=== PATIENT | male | born 1945 | race Caucasian/White ===

== ENCOUNTER 2018-06-09 19:39 | Inpatient (IN) | payer OTHER, MEDICARE ==
[~2018-06-09] VITALS: Ht 172.7 cm; Wt 99.4 kg
[~2018-06-09 19:39] MED LIST: AMLO10TA2 PO; CIPR-262 PO; CLOP75TA15 PO; LOSA100T15 PO; METO50TA16 PO; POTA20TA74 PO; SIMV20TA6 PO; TAMS0.4C34 PO
--- NOTE | 2018-06-09 19:40 | NUR ---
PT CAME IN BY SELF, C/C CP 06/29 STARTED AT 1800 SHARP NON RADIATING, TOOK ASA 81MG AND NITRO X2 PRIOR TO INTENSIFYING. SEEN BY DR DUMONT, EVAL DONE, EKG OBTAINED, NSR 87. AWAITING FOR NEW ORDERS.
[2018-06-09] MEDS ORDERED: NITROGLYCERIN 0.4 MG/TAB BOTTLE SL ONE (20:00)
[2018-06-09] MEDS ORDERED: ASPIRIN 81 MG TAB.CHEW PO ONE (20:00)
[2018-06-09 20:08] LABS: BASOPHILS # (AUTO) 0.2 /CMM (0.0-0.2); BASOPHILS % (AUTO) 1.9 % (0.0-2.0); EOSINOPHILS % (AUTO) 4.7 % (0.0-6.0); HEMATOCRIT 45 % (39-51); HEMOGLOBIN 15.4 g/dL (13.5-17.5); MEAN CORPUSCULAR HEMOGLOBIN 29 PG (26.0-33.0); MEAN CORPUSCULAR HGB CONC 34 g/dl (31.0-36.0); MEAN CORPUSCULAR VOLUME 86 fL (80-96); MONOCYTES # (AUTO) 0.7 /CMM (0.1-1.30); MONOCYTES % (AUTO) 8.8 % (2.0-12.0); NEUTROPHILS % (AUTO) 60.6 % (43.0-81.0); PLATELET COUNT (AUTO) 234 /CMM (150-450); RDW COEFFICIENT OF VARIATION 12.7 (11.5-15.0); RED BLOOD CELL COUNT(AUTO) 5.26 MIL/uL (4.5-6.0); WHITE BLOOD COUNT (AUTO) 8.3 K/uL (4.3-11.0)
[2018-06-09] MEDS ORDERED: NITROGLYCERIN 0.4 MG/TAB BOTTLE ONE (20:15)
[2018-06-09] MEDS ORDERED: ASPIRIN 325 MG TABLET ONE (20:15)
[2018-06-09 20:33] LABS: INR 1.06 (0.85-1.15)
[2018-06-09 20:38] LABS: ALANINE AMINOTRANSFERASE 25 U/L (12-78); ALBUMIN 3.6 g/dL (3.4-5.0); ALKALINE PHOSPHATASE 76 U/L (46-116); ASPARTATE AMINOTRANSFERASE 12 U/L (15-37); BILIRUBIN,DIRECT 0.1 mg/dL (0.0-0.2); BILIRUBIN,TOTAL 0.5 mg/dL (0.2-1.0); CALCIUM, SERUM 8.8 mg/dL (8.5-10.1); CARBON DIOXIDE 35 mmol/L (21-32); CHLORIDE 103 mmol/L (98-107); CREATININE 1.5 mg/dL (0.6-1.3); GLUCOSE 107 mg/dL (74-106); POTASSIUM 3.5 mmol/L (3.5-5.1); SODIUM SERUM 139 mmol/L (136-145); TOTAL PROTEIN, SERUM 7.4 g/dL (6.4-8.2); UREA NITROGEN, BLOOD 18 mg/dL (7-18)
[2018-06-09 20:39] LABS: TROPONIN I < 0.017 ng/mL (0.00-0.056)
[2018-06-09] MEDS ORDERED: ONDANSETRON HCL/PF 4 MG/2 ML VIAL IVP PRN (21:30)
[2018-06-09] MEDS ORDERED: ENOXAPARIN SODIUM 40 MG/0.4 ML DISP.SYRIN SQ SCH (21:30)
[2018-06-09] MEDS ORDERED: ACETAMINOPHEN 325 MG TABLET PO PRN ×2 (21:30→22:15)
[2018-06-09] MEDS ORDERED: MAG HYDROX/AL HYDROX/SIMETH 30 ML UDC PO PRN ×2 (21:30→22:15)
[2018-06-09] MEDS ORDERED: MAGNESIUM HYDROXIDE 30 ML UDC PO PRN ×2 (21:30→22:15)
[2018-06-09] MEDS ORDERED: NITROGLYCERIN 0.4 MG/TAB BOTTLE SL PRN ×2 (21:30→22:15)
--- NOTE | 2018-06-09 22:15 | NUR ---
MATERIALS ENGINEER NOTES: Patient came to the unit via gurney. Alert, oriented x 4. Breathing even and unlabored. Denies any chest pain or any discomfort as of this time. Denies any weakness. IV on RFA g#20 intact and patent. Tele monitor in place; sinus rhythm 74. Medications to be kept by pharmacy. Oriented to call light. Bed in lowest, locked position, siderailsx2 up. Will monitor accordingly.
[2018-06-09 22:25] VITALS: BP 170/79
[2018-06-09 23:39] VITALS: BP 151/70
[2018-06-10] VITALS: BP 153/63
[2018-06-10] MEDS ORDERED: ENOXAPARIN SODIUM 100 MG/ML DISP.SYRIN SQ SCH
[2018-06-10] MEDS ORDERED: METOPROLOL TARTRATE 50 MG TABLET PO ONE
--- NOTE | 2018-06-10 00:18 | NUR ---
RN NOTES: Patient refused Lopressor. Stated that usually his blood pressure drops. HR on BP monitor is 43, but on tele monitor, 79
[2018-06-10] MEDS: ZOLPIDEM TARTRATE 5 MG TABLET PO PRN ×2 (01:44→22:15)
--- NOTE | 2018-06-10 01:45 | NUR ---
BUZZSAW OPERATOR NOTE - Ayan Currently covering for JUNI Smith while she is on her meal break. Patient requested sleeping medication. Spoke with Sarah, and patient is okay to receive Ambien. I administered 5mg PO Ambien for prn use as ordered.
[2018-06-10 04:00] VITALS: BP 161/74
--- NOTE | 2018-06-10 07:03 | NUR ---
YOUTUBER CLOSING NOTES: Patient currently sleeping but easily arousable. Alert, oriented x 4. Breathing even and unlabored. Denies any chest pain or any discomfort as of this time. IV on RFA g#20 intact and patent. Tele monitor in place; sinus rhythm 63. All needs attended to. All due medications given as ordered. Call baker within reach. Bed in lowest, locked position, siderailsx2 up. Will endorse RAIZA to AM shift RN
--- NOTE | 2018-06-10 07:43 | NUR ---
RESEARCH SPEC OPENING NOTES RECEIVED PT FROM NIGHTSHIFT NURSE IN STABLE CONDITION. PT IS A/O X4. NO SOB OR SIGNS OF DISTRESS NOTED. BREATHING IS EVEN AND UNLABORED. PT ON RA AND SATING WELL. HE DENIES ANY CHEST PAIN, WEAKNESS, OR NUMBNESS AT THIS TIME. PT SINUS HIMANSHU ON THE TELE MONITOR WITH A HR OF 58. IV TO RIGHT RA NOTED TO BE PATENT AND INTACT. NO REDNESS OR SIGNS OF INFILTRATION NOTED. BED IN LOW LOCKED POSITION, SIDE RAILS UP X2, CALL LIGHT WITHIN REACH. WILL CONTINUE TO MONITOR
[2018-06-10 07:58] LABS: BASOPHILS # (AUTO) 0.1 /CMM (0.0-0.2); EOSINOPHILS % (AUTO) 6.3 % (0.0-6.0); HEMATOCRIT 45 % (39-51); HEMOGLOBIN 14.9 g/dL (13.5-17.5); LYMPHOCYTES # (AUTO) 1.5 /CMM (0.8-4.8); LYMPHOCYTES % (AUTO) 24.5 % (20.0-44.0); MEAN CORPUSCULAR HEMOGLOBIN 29 PG (26.0-33.0); MEAN CORPUSCULAR HGB CONC 33 g/dl (31.0-36.0); MEAN CORPUSCULAR VOLUME 88 fL (80-96); MONOCYTES # (AUTO) 0.5 /CMM (0.1-1.30); MONOCYTES % (AUTO) 7.7 % (2.0-12.0); NEUTROPHILS # (AUTO) 3.6 /CMM (1.8-8.9); NEUTROPHILS % (AUTO) 60.5 % (43.0-81.0); PLATELET COUNT (AUTO) 220 /CMM (150-450); RDW COEFFICIENT OF VARIATION 13.3 (11.5-15.0); RED BLOOD CELL COUNT(AUTO) 5.13 MIL/uL (4.5-6.0)
[2018-06-10 08:00] VITALS: BP 161/72
[2018-06-10 08:21] LABS: TROPONIN I < 0.017 ng/mL (0.00-0.056)
--- NOTE | 2018-06-10 08:33 | NUR ---
PARTY PLAN SALES AGENT NOTES: CTA CTA PROCEDURE ORDERED BY DR. SMITH. CONSENT FOR PROCEDURE AND CONTRAST MEDIUM OBTAINED FROM PT. PER MD, "PT MAY HAVE ALL HIS AM MEDICATIONS". PT EDUCATED THAT HE WILL REMAIN NPO UNTIL PROCEDURE IS COMPLETE. PT VERBALIZED FULL UNDERSTANDING
[2018-06-10 08:52] LABS: CHOLESTEROL 133 mg/dL (<200); HDL CHOLESTEROL 35 mg/dL (40-60); LDL 79 mg/dL (0-99); TRIGLYCERIDES 152 mg/dL (30-150)
[2018-06-10] MEDS ORDERED: TAMSULOSIN 0.4 MG CAP.SR.24H PO SCH (09:00)
[2018-06-10] MEDS ORDERED: CLOPIDOGREL BISULFATE 75 MG TABLET PO SCH (09:00)
[2018-06-10] MEDS ORDERED: AMLODIPINE BESYLATE 10 MG TABLET PO SCH (09:00)
[2018-06-10] MEDS ORDERED: SIMVASTATIN 20 MG TABLET PO SCH (09:00)
[2018-06-10] MEDS ORDERED: METOPROLOL TARTRATE 50 MG TABLET PO SCH ×2 (09:00)
[2018-06-10] MEDS ORDERED: ASPIRIN EC 81 MG TABLET.DR PO SCH (09:00)
[2018-06-10] MEDS: CLOPIDOGREL BISULFATE 75 MG TABLET PO SCH (09:07)
[2018-06-10] MEDS: AMLODIPINE BESYLATE 10 MG TABLET PO SCH (09:07)
[2018-06-10] MEDS: ASPIRIN EC 81 MG TABLET.DR PO SCH (09:08)
[2018-06-10] MEDS: TAMSULOSIN 0.4 MG CAP.SR.24H PO SCH ×2 (09:08→16:14)
[2018-06-10] MEDS: SIMVASTATIN 20 MG TABLET PO SCH (09:08)
[2018-06-10 10:05] LABS: ALANINE AMINOTRANSFERASE 25 U/L (12-78); ALBUMIN 3.3 g/dL (3.4-5.0); ALKALINE PHOSPHATASE 66 U/L (46-116); ASPARTATE AMINOTRANSFERASE 14 U/L (15-37); BILIRUBIN,TOTAL 0.5 mg/dL (0.2-1.0); CALCIUM, SERUM 8.2 mg/dL (8.5-10.1); CARBON DIOXIDE 28 mmol/L (21-32); CHLORIDE 101 mmol/L (98-107); CREATININE 1.2 mg/dL (0.6-1.3); GLUCOSE 103 mg/dL (74-106); PHOSPHORUS 3.8 mg/dL (2.5-4.9); POTASSIUM 3.5 mmol/L (3.5-5.1); SODIUM SERUM 141 mmol/L (136-145); TOTAL PROTEIN, SERUM 6.8 g/dL (6.4-8.2); UREA NITROGEN, BLOOD 13 mg/dL (7-18)
[2018-06-10] MEDS ORDERED: CT SWABBABLE VALVE TRANS SET 1 EA INFUS.SET MC ONE (10:52)
[2018-06-10] MEDS ORDERED: IOHEXOL-350 100 ML VIAL IV ONE (10:52)
[2018-06-10] MEDS ORDERED: IV NS 0.9% 250 ML IV ONE (10:53)
[2018-06-10] MEDS ORDERED: LORAZEPAM 0.5 MG TABLET PO ONE (11:30)
[2018-06-10] MEDS: ENOXAPARIN SODIUM 40 MG/0.4 ML DISP.SYRIN SQ SCH (11:31)
[2018-06-10] MEDS: ONDANSETRON HCL/PF 4 MG/2 ML VIAL IVP PRN ×2 (11:33→22:11)
[2018-06-10] MEDS: METOPROLOL TARTRATE 50 MG TABLET PO SCH ×2 (12:10→16:05)
--- NOTE | 2018-06-10 12:13 | NUR ---
MOLDER FEEDER NOTES: METOPROL ADMINISTRATION PT'S 0900 METOPROLOL WAS ADMINISTERED LATYE PT IS SCHEDULED FOR CTA IN ABOUT 30MIN AND HIS HR AROUND 0830 WAS IN THE LOWER 50S/ IT IS NOT STABLE IN THE 70S HENCE WHY THE MEDICATION WAS ADMINISTERED AT THIS TIME TO MAINTAIN HIS HR IN THE 50S-60S FOR PROCEDURE
[2018-06-10] MEDS ORDERED: METOPROLOL TARTRATE INJ 5 MG/5 ML AMPUL ONE (13:41)
--- NOTE | 2018-06-10 14:17 | NUR ---
PT BACK FROM CTA IN STABLE CONDITION. WILL AWAIT RESULTS
[2018-06-10 15:33] VITALS: BP 115/62
[2018-06-10] MEDS ORDERED: IV NS 0.9% 500 ML IV ONE (16:30)
--- NOTE | 2018-06-10 18:32 | NUR ---
ADMISSION SPECIALIST CLOSING NOTES PT REMAINS STABLE. ALL NEEDS ANTICIPATED FOR AND MET. ALL DUE MEDS GIVEN. HE CONTINUES TO DENY CHEST PAIN AT THIS TIME. VSS. IV REMAINS PATENT AND INTACT. TELEPHONE ORDER GIVEN BY TO HYDRATE THE PT WITH 500CC NS @ 75ML/HR. PT TOLERATING INFUSION WELL. HE REMAINS SR ON THE TELE MONITOR WITH A HR OF 62. SAFETY MEASURES REMAIN IN PLACE. WILL ENDORSE TO NIGHTSHIFT NURSE FOR RAIZA
--- NOTE | 2018-06-10 19:30 | NUR ---
LAND MEASURER OPENING NOTES RECEIVED PT FROM AM SHIFT IN STABLE CONDITION. PT IS A/O X 4. NO SOB OR SIGNS OF DISTRESS NOTED. BREATHING IS EVEN AND UNLABORED. PT ON RA AND SATING WELL. HE DENIES ANY CHEST PAIN, WEAKNESS, OR NUMBNESS AT THIS TIME. PT SINUS HIMANSHU ON THE TELE MONITOR WITH A HR OF 56. IV TO RIGHT FA NOTED TO BE PATENT AND INTACT RUNNING WITH IVF ORDERED. . NO REDNESS OR SIGNS OF INFILTRATION NOTED. BED IN LOW LOCKED POSITION, SIDE RAILS UP X 2, CALL LIGHT WITHIN REACH. WILL CONTINUE TO MONITOR FOR ANY RAIZA.
[2018-06-10 20:00] VITALS: BP 137/70
--- NOTE | 2018-06-10 22:11 | NUR ---
PRN TYLENOL & ZOFRAN GIVEN PT REQUESTED TO GET TYLENOL FOR HEADACHE & NAUSEA MEDICINE. PRN TYLENOL & ZOFRAN GIVEN ORDERED. WILL REASSESS ACCORDINGLY.
--- NOTE | 2018-06-10 22:15 | NUR ---
PRN ZENAIEN GIVEN PT ASKED TO GET AMBIEN FOR SLEEPLESSNESS, WILL REASSESS FOR EFFECTIVENESS.
[2018-06-11] VITALS (7 sets, daily range): BP systolic 138–153; BP diastolic 61–75
--- NOTE | 2018-06-11 06:59 | NUR ---
SEO CONSULTANT CLOSING NOTES PT SLEPT INTERMITTENTLY @ NIGHT. PT IS A/O X 4. NO SOB OR SIGNS OF DISTRESS NOTED. BREATHING IS EVEN AND UNLABORED. PT ON O2 2LPM & SATING WELL. HE DENIES ANY CHEST PAIN, WEAKNESS, OR NUMBNESS AT THIS TIME. PT SINUS HIMANSHU ON THE TELE MONITOR WITH A HR OF 54. HAD BM X 1 @ NIGHT. IV TO RIGHT FA NOTED TO BE PATENT AND PATENT. NO REDNESS OR SIGNS OF INFILTRATION NOTED. BED IN LOW LOCKED POSITION, SIDE RAILS UP X 2, CALL LIGHT WITHIN REACH. ENDORSED TO AM RN FOR CLOSE MONITORING.
[2018-06-11] MEDS: AMLODIPINE BESYLATE 10 MG TABLET PO SCH (09:00)
[2018-06-11] MEDS: METOPROLOL TARTRATE 50 MG TABLET PO SCH ×4 (09:00→23:38)
[2018-06-11] MEDS: ASPIRIN EC 81 MG TABLET.DR PO SCH (09:00)
[2018-06-11] MEDS: ENOXAPARIN SODIUM 40 MG/0.4 ML DISP.SYRIN SQ SCH (09:10)
[2018-06-11] MEDS: CLOPIDOGREL BISULFATE 75 MG TABLET PO SCH (09:11)
[2018-06-11] MEDS: TAMSULOSIN 0.4 MG CAP.SR.24H PO SCH ×2 (09:12→17:02)
[2018-06-11] MEDS: SIMVASTATIN 20 MG TABLET PO SCH (09:12)
--- NOTE | 2018-06-11 09:54 | NUR ---
PATIENT REFUSING ASPIRIN, STATING " I ONLY WANT PLAVIX!" NO SIGNS OF BLEEDING NOTED. PATIENT EDUCATED ON LENGTH ON THE PURPOSE OF EACH MEDICATIONS. BENEFITS AND RISK EXPLAINED AT LENGTH. PATIENT STILL REFUSING
[2018-06-11] MEDS: ONDANSETRON HCL/PF 4 MG/2 ML VIAL IVP PRN (19:08)
--- NOTE | 2018-06-11 19:20 | NUR ---
RN CLOSING NOTES: PATIENT RESTING IN BED. NONLABORED BREATHING NOTED ON ROOM AIR. DENYING CHEST PAIN THROUGHOUT SHIFT. STATES NOW THAT HE FEELS " A LITTLE NAUSEOUS" AFTER DINNER CONSUMPTION. NO VOMITING NOTED. ZOFRAN ADMINISTERED PER ORDERS. DR TEJADA NOTIFIED THAT PATIENT REFUSING ASPIRIN PATIENT STILL REFUSING LEXISCAN. PATIENT AMBULATED AROUND THE UNIT IN A STEADY MANNER WITH NO ADVERSE EFFECTS NOW CALL LIGHT WITHIN REACH. BED IN LOWEST LOCKED POSITION. TELE SR 90 ENDORSED TO NEXT RN
--- NOTE | 2018-06-11 19:37 | NUR ---
TELERN FULLY AWAKE, RESTING QUIETLY. NO SOB, PAINFREE FOR NOW. SB TO SR ON THE MONITOR, CONTINUED MONITORING.
[2018-06-11] MEDS: LORAZEPAM 0.5 MG TABLET PO PRN (23:32)
--- NOTE | 2018-06-11 23:39 | NUR ---
TELERN ANXIOUS, ATIVAN 0.5MG ADMINISTERED. BEDREST EMPHASIZED. SAFETY PRECAUTIONS OBSERVED. BP ELEVATED LOPRESSOR 50 MG PO GIVEN. UNABLE TO BARCODE .
[2018-06-12] VITALS (7 sets, daily range): BP systolic 110–178; BP diastolic 57–87
[2018-06-12] MEDS: ZOLPIDEM TARTRATE 5 MG TABLET PO PRN (00:49)
[2018-06-12] MEDS: METOPROLOL TARTRATE 50 MG TABLET PO SCH ×3 (06:00→18:00)
--- NOTE | 2018-06-12 06:00 | NUR ---
TELERShana SLEPT THROUGHOUT THE NIGHT AFTER TAKING AMBIEN. CLOSELY WATCHED.
[2018-06-12 06:32] LABS: BASOPHILS % (AUTO) 0.6 % (0.0-2.0); HEMATOCRIT 46 % (39-51); HEMOGLOBIN 14.9 g/dL (13.5-17.5); LYMPHOCYTES # (AUTO) 1.7 /CMM (0.8-4.8); LYMPHOCYTES % (AUTO) 22.6 % (20.0-44.0); MEAN CORPUSCULAR HEMOGLOBIN 29 PG (26.0-33.0); MEAN CORPUSCULAR HGB CONC 32 g/dl (31.0-36.0); MEAN CORPUSCULAR VOLUME 90 fL (80-96); MONOCYTES # (AUTO) 0.7 /CMM (0.1-1.30); MONOCYTES % (AUTO) 8.7 % (2.0-12.0); NEUTROPHILS # (AUTO) 4.8 /CMM (1.8-8.9); NEUTROPHILS % (AUTO) 63.1 % (43.0-81.0); PLATELET COUNT (AUTO) 236 /CMM (150-450); RED BLOOD CELL COUNT(AUTO) 5.14 MIL/uL (4.5-6.0); WHITE BLOOD COUNT (AUTO) 7.6 K/uL (4.3-11.0)
[2018-06-12 06:40] LABS: ALANINE AMINOTRANSFERASE 25 U/L (12-78); ALBUMIN 3.1 g/dL (3.4-5.0); ALKALINE PHOSPHATASE 62 U/L (46-116); ASPARTATE AMINOTRANSFERASE 24 U/L (15-37); BILIRUBIN,TOTAL 0.4 mg/dL (0.2-1.0); CALCIUM, SERUM 8.4 mg/dL (8.5-10.1); CARBON DIOXIDE 33 mmol/L (21-32); CHLORIDE 102 mmol/L (98-107); CREATININE 1.1 mg/dL (0.6-1.3); GLUCOSE 94 mg/dL (74-106); PHOSPHORUS 4.4 mg/dL (2.5-4.9); POTASSIUM 3.6 mmol/L (3.5-5.1); SODIUM SERUM 141 mmol/L (136-145); TOTAL PROTEIN, SERUM 6.5 g/dL (6.4-8.2); UREA NITROGEN, BLOOD 11 mg/dL (7-18)
--- NOTE | 2018-06-12 07:10 | NUR ---
RN INITIAL NOTES: PATIENT RESTING IN BED. NONLABORED BREATHING NOTED ON ROOM AIR. DENYING CHEST PAIN AT THE MOMENT. DENYING HEADACHES AT THE MOMENT. TELE MONITORING WITH SINUS BRADYCARDIA NOTED WITH 59 HR. BED IN LOWEST LOCKED POSITION.CALL LIGHT WITHIN REACH. WILL CONTINUE TO MONITOR
[2018-06-12] MEDS: AMLODIPINE BESYLATE 10 MG TABLET PO SCH (08:03)
[2018-06-12] MEDS: hydrALAZINE HCL 50 MG TABLET PO SCH ×3 (08:27→17:28)
[2018-06-12] MEDS: TAMSULOSIN 0.4 MG CAP.SR.24H PO SCH ×2 (08:27→17:28)
[2018-06-12] MEDS: ASPIRIN EC 81 MG TABLET.DR PO SCH (09:00)
[2018-06-12] MEDS: ISOSORBIDE DINITRATE (20MG) 20 MG TABLET PO SCH ×2 (09:00→18:50)
[2018-06-12] MEDS: CLOPIDOGREL BISULFATE 75 MG TABLET PO SCH (09:45)
[2018-06-12] MEDS: SIMVASTATIN 20 MG TABLET PO SCH (09:45)
[2018-06-12] MEDS: ENOXAPARIN SODIUM 40 MG/0.4 ML DISP.SYRIN SQ SCH (09:45)
--- NOTE | 2018-06-12 15:34 | NUR ---
PATIENT ASSESSED FOR SIGNS OF URINARY RETENTION. BLADDER SCANNER UTILIZED: RESULT NOTING 0 ML OF RETENTION
[2018-06-12] MEDS: LORAZEPAM 0.5 MG TABLET PO PRN (17:29)
--- NOTE | 2018-06-12 18:56 | NUR ---
PATIENT STATES THAT ANXIETY HAS SUBSIDED AFTER ATIVAN INTAKE. PATIENT ENCOURAGED TO EXPRESS FEELINGS AND EMOTIONS
--- NOTE | 2018-06-12 19:30 | NUR ---
RN MS OPENING NOTES RECEIVED PATIENT IN BED AWAKE, ALERT AND ORIENTED X3, VERBALLY RESPONSIVE. IN STABLE CONDITION. BREATHING EVEN AND UNLABORED. NO SOB NOTED. IV RIGHT FA #20 INTACT AND PATENT. DENIES ANY PAIN OR DISCOMFORT AT THE MOMENT. SKIN DRY AND WARM TO TOUCH. ALL OTHER NEEDS ATTENDED TO. ANTICIPATING DISCHARGE TONIGHT. CALL LIGHT WITHIN REACH. BED ON LOWEST LOCKED POSITION. WILL CONTINUE TO MONITOR
--- NOTE | 2018-06-12 19:30 | NUR ---
RN CLOSING NOTES: PATIENT RESTING IN BED. NONLABORED BREATHING NOTED ON ROOM AIR. NO CHANGES DURING SHIFT. PATIENT DENIED CHEST PAIN THROUGHOUT SHIFT. IV SITE GAGUE 22 ON RIGHT FA PATENT AND INTACT. PER MARY MARTÍNEZ DNP- PATIENT TO BE DISCHARGED TODAY. NO DISCHARGE ORDER YET. SPOKE WITH PATIENT REGRADING ARRANGING TRANSPORTATION.PATIENT STATED THAT FAMILY WILL BE ABLE TO PICK HIM UP MEDICATIONS RETURNED TO PATIENT. ALL VALUABLES WITH PATIENT EXISTCARE INSTRUCTIONS DISCUSSED WITH PATIENT NO SIGNS OF ANXIETY NOTED AT THE MOMENT PATIENT REFUSING SKIN PICTURE , EDUCATED ON BENEFIT AND RISKS PATIENT REFUSING A WALKER,STATING HE HAS ONE AT HOME
--- NOTE | 2018-06-12 20:40 | NUR ---
DISCHARGE NOTES PATIENT DISCHARGE TO HOME WITH SON VIA PRIVATE CAR IN STABLE CONDITION. BREATHING EVEN AND UNLABORED. DENIES ANY PAIN OR DISCOMFORT. PATIENT GIVEN DISCHARGE PAPER WORKS WITH INSTRUCTIONS TO CONTINUE HOME MEDS, FOLLOW-UP WITH PCP AND ACCESS SERVICE REPRESENTATIVE, AND TO CALL 911 IN CASE OF EMERGENCY - VERBALIZED UNDERSTANDING. PATIENT WAS ALSO GIVEN INSTRUCTIONS ON WHEN AND HOW TO TAKE HIS MEDICATIONS - VERBALIZED UNDERSTANDING. FINAL SKIN CHECK RENDERED. PATIENT REFUSED TO TAKE FINAL PICTURES SINCE HIS SON WAS IN A "HURRY TO LEAVE." NO NEW SKIN ISSUES NOTED. PATIENT DRY AND CLEAN. IV LINE REMOVED AND APPLIED PRESSURE/DRESSING. PATIENT ASSISTED OUT OF THE FACILITY BY NURSE VIA WHEELCHAIR.
== END 2018-06-12 20:30 | disposition home or self-care (01) | DRG 203 ==
LOC: ER 19:40 → TELE 22:11 → MED 06-12 08:58
DX: M94.0 Chondrocostal junction syndrome [Tietze] (principal); G62.9 Polyneuropathy, unspecified; I25.10 Atherosclerotic heart disease of native coronary artery without angina pectoris; Z95.5 Presence of coronary angioplasty implant and graft; Z95.1 Presence of aortocoronary bypass graft; K21.9 Gastro-esophageal reflux disease without esophagitis; I10 Essential (primary) hypertension; Z98.890 Other specified postprocedural states; Z88.5 Allergy status to narcotic agent; Z88.0 Allergy status to penicillin; Z79.899 Other long term (current) drug therapy; E78.5 Hyperlipidemia, unspecified; Z86.010 Personal history of colon polyps; I25.2 Old myocardial infarction
CPT/HCPCS: 36415; 70450-TC; 71045-TC; 75574; 80048-TC; 80053-TC; 80061-TC; 80076-TC; 83735-TC; 84100-TC; 84484-TC; 85025-TC; 85730-TC; 87081-TC; 93307-TC; A4606; J1650; J2405; J3490; J7040; J7050; Q9967; Z7610

== ENCOUNTER 2020-04-11 21:17 | Inpatient (IN) | payer MEDICARE, OTHER ==
[~2020-04-11] VITALS: Ht 167.6 cm; Wt 96.2 kg
[~2020-04-11 21:17] MED LIST changes: -AMLO10TA2 PO; +AMLO10TA7 PO; -CIPR-262 PO; -LOSA100T15 PO; +LOSA100T31 PO; +SIMV-46 PO; -SIMV20TA6 PO
--- NOTE | 2020-04-11 21:17 | NUR ---
TO ER BED 8 BIB EMS FROM HOME C/O GENERALIZED WEAKNESS AND SOB X2 WEEK. LUNG SOUNDS DEMINISHED BILATERALLY ON AUSCULTATION. PT AAOX4 PLACE PT ON CARDIAC MONITORING, CONTINUOUS POX. NOTED PT ORAL TEMP 100.5. PLACE PT ON CARDIAC MONITORING, CONTINUOUS POX, NOTED O2 SAT 75% ON RA, O2@2L/NC O2 SAT INCREASED TO 95%. ER MD AT BEDSIDE TO EVAL PT WITH ORDERS RECEIVED. WILL CARRY OUT ORDERS.
--- NOTE | 2020-04-11 21:20 | NUR ---
RT AT BEDSIDE
--- NOTE | 2020-04-11 21:22 | NUR ---
EKG AT BEDSIDE
[2020-04-11 21:44] LABS: BASOPHILS # (AUTO) 0.1 /CMM (0.0-0.2); BASOPHILS % (AUTO) 0.9 % (0.0-2.0); EOSINOPHILS % (AUTO) 0.8 % (0.0-6.0); HEMATOCRIT 46 % (39-51); HEMOGLOBIN 14.4 g/dL (13.5-17.5); LYMPHOCYTES # (AUTO) 1.8 /CMM (0.8-4.8); LYMPHOCYTES % (AUTO) 18.2 % (20.0-44.0); MEAN CORPUSCULAR HGB CONC 31 g/dl (31.0-36.0); MEAN CORPUSCULAR VOLUME 88 fL (80-96); MONOCYTES # (AUTO) 0.8 /CMM (0.1-1.30); MONOCYTES % (AUTO) 8.7 % (2.0-12.0); NEUTROPHILS # (AUTO) 6.8 /CMM (1.8-8.9); NEUTROPHILS % (AUTO) 71.4 % (43.0-81.0); PLATELET COUNT (AUTO) 264 /CMM (150-450); RED BLOOD CELL COUNT(AUTO) 5.23 MIL/uL (4.5-6.0); WHITE BLOOD COUNT (AUTO) 9.6 K/uL (4.3-11.0)
[2020-04-11 21:53] LABS: ABG BASE EXCESS 7.7 mmol/L; ABG OXYGEN SATURATION 91.8 % (92.0-98.5); ABG PCO2 77.1 mmHg (35.0-45.0); ABG PH 7.303 (7.350-7.450); ABG PO2 69.2 mmHg (75.0-100.0); AaDO2 39.5 mmHg; COHb 1.8 % (0.5-1.5); MetHb 0.4 % (0.0-1.5); O2Hb 89.8 % (94.0-97.0); SITE, ABG Left Radial; VENT MODE, BG NC 2L 28%
--- NOTE | 2020-04-11 21:55 | NUR ---
Patient is resting comfortably in bed. Easily aroused. VSS.
--- NOTE | 2020-04-11 22:00 | NUR ---
PT PLACED ON BIPAP VIA LARGE FULL MASK ON MD ORDERED SETTINGS IPAP 18, EPAP 5, RR 16, 50% PER ER MD ORDERS. ALARMS SET AND AUDIBLE. ZENAUBAG AT HOB. BIPAP PLUGGED INTO RED OUTLET. Addendum: 04/12/20 at 0033 by BEULAH MARSHALL RT Amended: Links added.
[2020-04-11 22:03] LABS: D-DIMER 0.57 mg/L(FEU (0.17-0.50)
[2020-04-11 22:07] LABS: ALANINE AMINOTRANSFERASE 30 U/L (12-78); ALBUMIN 3.2 g/dL (3.4-5.0); ALKALINE PHOSPHATASE 86 U/L (46-116); ASPARTATE AMINOTRANSFERASE 31 U/L (15-37); B-TYPE NATRIURETIC PEPTIDE 4814 PG/ML (0-125); BILIRUBIN,TOTAL 0.6 mg/dL (0.2-1.0); CHLORIDE 96 mmol/L (98-107); CREATININE 1.5 mg/dL (0.6-1.3); GLUCOSE 137 mg/dL (74-106); POTASSIUM 4.1 mmol/L (3.5-5.1); SODIUM SERUM 139 mmol/L (136-145); TOTAL PROTEIN, SERUM 7.4 g/dL (6.4-8.2); UREA NITROGEN, BLOOD 21 mg/dL (7-18)
[2020-04-11 22:08] LABS: CARBON DIOXIDE 40 mmol/L (21-32)
--- NOTE | 2020-04-11 22:18 | NUR ---
DR. GALINDO ON THE PHONE WITH DR. BEY
--- NOTE | 2020-04-11 22:19 | NUR ---
ACCEPTED BY MAIDA PER Jeremías YEBOAH
--- NOTE | 2020-04-11 22:20 | NUR ---
Gurjit saini in ED - 04/11/20 at 2243 by GERRY SPOKE WITH PT'S SON ADOLFO ([phone]) AND INFORMED OF PT'S ADMISSION. REQUESTED FOR HOME MEDICATION LIST. SON STATES HE DOES NOT KNOW AND NO ONE IS HOME TO CHECK
--- NOTE | 2020-04-11 22:20 | NUR ---
SPOKE WITH PT'S SON ADOLFO ([phone]) AND INFORMED OF PT'S ADMISSION
[2020-04-11] MEDS ORDERED: ASPIRIN 81 MG TAB.CHEW PO ONE (22:30)
[2020-04-11] MEDS ORDERED: ENOXAPARIN SODIUM 100 MG/ML DISP.SYRIN SQ ONE (22:30)
[2020-04-11] MEDS ORDERED: ACETAMINOPHEN 325 MG TABLET PO ONE (22:30)
[2020-04-11] MEDS ORDERED: CEFEPIME 1 GM in IV D5W 50 ML IV ONE (22:30)
[2020-04-11] MEDS ORDERED: Magnesium 1GM/D5W 100ML PREMIX PIGGYBACK IV ONE (22:30)
[2020-04-11] MEDS ORDERED: VANCOMYCIN 1 GM in IV D5W 250 ML IV ONE (22:30)
[2020-04-11] MEDS ORDERED: methylPREDNISolone SOD SUCC 125 MG/2ML VIAL IV ONE (22:30)
[2020-04-11] MEDS ORDERED: CEFEPIME 1 GM VIAL ONE (22:42)
[2020-04-11] MEDS ORDERED: VANCOMYCIN 1 GM VIAL ONE (22:43)
[2020-04-11] MEDS ORDERED: ALPR2TAB2 PO (22:43)
[2020-04-11] MEDS ORDERED: HYDR-4384 PO (22:43)
[2020-04-11] MEDS ORDERED: FURO-144 PO (22:43)
--- NOTE | 2020-04-11 23:10 | NUR ---
AUTH FOR ADMISSION RECEIVED FROM RAUL ([facility] HARVESTER OPERATOR) AUTH #[id number].
--- NOTE | 2020-04-11 23:11 | NUR ---
RT AT BEDSIDE
--- NOTE | 2020-04-11 23:11 | NUR ---
BIPAP SETTINGS: IPAP:18 EPAP:5 RATE:16 FIO2:50%
--- NOTE | 2020-04-11 23:15 | NUR ---
PER DR. BEY, REMOVE PT OFF BIPAP AND REPEAT ABG 30 MINUTES AFTER
[2020-04-11] MEDS ORDERED: HYDROCODONE/APAP 5/325MG 1 EACH TABLET PO PRN (23:30)
[2020-04-11] MEDS ORDERED: IPRATROPIUM NEB FS 0.5 MG/2.5 ML AMPUL.NEB NEB PRN (23:30)
[2020-04-11] MEDS ORDERED: ALBUTEROL FS 2.5 MG/0.5 ML VIAL.NEB NEB PRN (23:30)
[2020-04-11] MEDS ORDERED: FUROSEMIDE 40 MG/4 ML VIAL IV ONE (23:30)
[2020-04-11 23:42] LABS: BILIRUBIN,DIRECT 0.2 mg/dL (0.0-0.2)
[2020-04-11 23:48] LABS: ABG BASE EXCESS 7.5 mmol/L; ABG OXYGEN SATURATION 95.7 % (92.0-98.5); ABG PCO2 77.2 mmHg (35.0-45.0); ABG PH 7.301 (7.350-7.450); ABG PO2 91.5 mmHg (75.0-100.0); AaDO2 134.2 mmHg; COHb 1.3 % (0.5-1.5); MetHb 0.4 % (0.0-1.5); O2Hb 94.1 % (94.0-97.0); SITE, ABG Left Radial; VENT MODE, BG Nasal Cannula 6L
--- NOTE | 2020-04-11 23:53 | NUR ---
BED ASSIGNMENT 251
--- NOTE | 2020-04-11 23:55 | NUR ---
NURSE WILL CALL BACK
[2020-04-12] VITALS (35 sets, daily range): BP systolic 109–157; BP diastolic 57–89
--- NOTE | 2020-04-12 | NUR ---
[place] (BUCKET CHUCKER) AT BEDSIDE, UNABLE TO DO ECHO UNTIL COVID RESULTS FINAL. DR. BEY MADE AWARE
--- NOTE | 2020-04-12 00:07 | NUR ---
REPORT GIVEN TO ED, RN FOR RAIZA
[2020-04-12 00:33] LABS: CREATINE KINASE, TOTAL 158 U/L (39-308); FERRITIN 11 ng/mL (8-388)
[2020-04-12 00:35] LABS: C-REACTIVE PROTEIN 2.2 mg/dL (0.0-0.9)
--- NOTE | 2020-04-12 00:47 | NUR ---
PT TRANSFERRED TO ROOM VIA ACLS PROTOCOL
[2020-04-12 01:13] LABS: APPEARANCE,URINE Clear (CLEAR); BILIRUBIN,URINE SMALL (NEGATIVE); BLOOD, URINE Negative Ery/uL (NEGATIVE); COLOR,URINE Yellow (YELLOW); KETONES,URINE Negative (NEGATIVE); LEUKOCYTE ESTERASE ,URINE Negative (NEGATIVE); NITRITE, URINE Negative (NEGATIVE); PH,URINE 5.5 (5.0-8.0); PROTEIN,URINE 100 mg/dl (NEGATIVE); UGLUCOSE Negative (NEGATIVE)
[2020-04-12 02:02] LABS: BACTERIA,URINE Few /HPF (None Seen); RBC,URINE 0-2 /HPF (0-2); SQUAMOUS EPITHELIAL CELL,UR Rare /HPF (None Seen); WBC,URINE 0-2 /HPF (0-3)
--- NOTE | 2020-04-12 02:30 | NUR ---
research agricultural engineer. received the report from Rafia ALFREDO. oxygen 3l sat 86. pt is awake,alert, follow commands. monitor car operator showing nsr.iv rt and lt hand 20g. tko running. will continue to monitor vitals.
--- NOTE | 2020-04-12 05:10 | NUR ---
SHEET METAL FABRICATOR PT WAS ADMITTED FROM ER WITH DIAGNOSIS, RESPIRATORY FAILURE, PNA, NSTEMI, CHF. PT IS AWAKE ALERT, ORIENTED. MOVES ALL EXTREMITIES, SPEECH IS CLEAR. PT WAS PLACED ON BIPAP IN ER, BUT THE TIME HE ARRIVED TO ICU PT TOLERATED O2 6 L VIA N/C. VSS, AFEBRILE, SCOPE SR. VOIDS SUFFICIENT AMT. OF CLEAR URINE. C/O NO SOB, PAIN OR ANY OTHER DISTRESS. MEDICATED ORDERED. WILL CONTINUE CLOSE MONITORING.
[2020-04-12 06:18] LABS: CALCIUM, SERUM 7.9 mg/dL (8.5-10.1); CARBON DIOXIDE 39 mmol/L (21-32); CHLORIDE 97 mmol/L (98-107); CREATININE 1.5 mg/dL (0.6-1.3); GLUCOSE 154 mg/dL (74-106); POTASSIUM 5.3 mmol/L (3.5-5.1); SODIUM SERUM 138 mmol/L (136-145); UREA NITROGEN, BLOOD 22 mg/dL (7-18)
[2020-04-12 06:21] LABS: BASOPHILS % (AUTO) 0.3 % (0.0-2.0); EOSINOPHILS % (AUTO) 0.1 % (0.0-6.0); HEMATOCRIT 46 % (39-51); HEMOGLOBIN 14.8 g/dL (13.5-17.5); LYMPHOCYTES # (AUTO) 0.6 /CMM (0.8-4.8); LYMPHOCYTES % (AUTO) 7.6 % (20.0-44.0); MEAN CORPUSCULAR HGB CONC 32 g/dl (31.0-36.0); MEAN CORPUSCULAR VOLUME 88 fL (80-96); MONOCYTES # (AUTO) 0.1 /CMM (0.1-1.30); NEUTROPHILS # (AUTO) 6.7 /CMM (1.8-8.9); PLATELET COUNT (AUTO) 233 /CMM (150-450); RED BLOOD CELL COUNT(AUTO) 5.28 MIL/uL (4.5-6.0); WHITE BLOOD COUNT (AUTO) 7.4 K/uL (4.3-11.0)
[2020-04-12 06:22] LABS: CHOLESTEROL 136 mg/dL (<200); HDL CHOLESTEROL 38 mg/dL (40-60); LDL 87 mg/dL (0-99); TRIGLYCERIDES 79 mg/dL (30-150)
[2020-04-12] MEDS: TAMSULOSIN 0.4 MG CAP.SR.24H PO SCH ×2 (08:21→19:27)
[2020-04-12] MEDS: AMLODIPINE BESYLATE 10 MG TABLET PO SCH (08:21)
[2020-04-12] MEDS: CLOPIDOGREL BISULFATE 75 MG TABLET PO SCH (08:21)
[2020-04-12] MEDS: ENOXAPARIN SODIUM 100 MG/ML DISP.SYRIN SQ SCH ×2 (08:23→20:12)
[2020-04-12] MEDS ORDERED: ASPIRIN EC 81 MG TABLET.DR PO ONE (09:00)
[2020-04-12] MEDS ORDERED: ALBUTEROL FS 2.5 MG/0.5 ML VIAL.NEB NEB SCH (09:00)
[2020-04-12] MEDS ORDERED: IPRATROPIUM NEB FS 0.5 MG/2.5 ML AMPUL.NEB NEB SCH (09:00)
[2020-04-12] MEDS ORDERED: POTASSIUM CHLORIDE 20 MEQ TAB.PRT.SR PO SCH (09:00)
[2020-04-12] MEDS ORDERED: POTASSIUM CHLORIDE 10 MEQ TABLET.SA PO SCH (09:00)
[2020-04-12] MEDS ORDERED: METOPROLOL TARTRATE 50 MG TABLET PO SCH ×3 (09:00→17:00)
[2020-04-12] MEDS ORDERED: FUROSEMIDE 20 MG/2 ML VIAL IV ONE (09:00)
[2020-04-12 09:04] LABS: ABG BASE EXCESS 8.7 mmol/L; ABG OXYGEN SATURATION 91.9 % (92.0-98.5); ABG PCO2 105.3 mmHg (35.0-45.0); ABG PH 7.214 (7.350-7.450); ABG PO2 73.7 mmHg (75.0-100.0); AaDO2 38.7 mmHg; COHb 1.5 % (0.5-1.5); MetHb 0.2 % (0.0-1.5); O2Hb 90.3 % (94.0-97.0); SITE, ABG Left Brachial; VENT MODE, BG NASAL CANNULA
--- NOTE | 2020-04-12 09:17 | NUR ---
O2 FLOW DECREASED FROM 3 LPM TO [address] VERNON Addendum: 04/12/20 at 0917 by NEGAR QUINTANILLA RT Amended: Links added.
[2020-04-12] MEDS: LEVOFLOXACIN 500 MG /D5W 100ML 500 MG in PREMIX 1 EA IV SCH (10:57)
[2020-04-12 11:48] LABS: ABG BASE EXCESS 8.8 mmol/L; ABG PCO2 95.8 mmHg (35.0-45.0); ABG PH 7.245 (7.350-7.450); ABG PO2 57.3 mmHg (75.0-100.0); COHb 1.5 % (0.5-1.5); MetHb 0.4 % (0.0-1.5); O2Hb 84.4 % (94.0-97.0); SITE, ABG Left Brachial; VENT MODE, BG nasal cannula
[2020-04-12] MEDS: methylPREDNISolone SOD SUCC 40 MG/ML VIAL IV SCH ×2 (13:39→20:09)
[2020-04-12] MEDS: HYDROCODONE/APAP 5/325MG 1 EACH TABLET PO PRN (14:20)
[2020-04-12] MEDS: IPRATROPIUM/ALBUTEROL INHALER IH SCH ×2 (15:41→18:00)
[2020-04-12 16:02] LABS: ABG BASE EXCESS 9.1 mmol/L; ABG OXYGEN SATURATION 89.4 % (92.0-98.5); ABG PCO2 79.3 mmHg (35.0-45.0); ABG PO2 58.9 mmHg (75.0-100.0); AaDO2 17.9 mmHg; COHb 1.8 % (0.5-1.5); MetHb 0.4 % (0.0-1.5); O2Hb 87.4 % (94.0-97.0); SITE, ABG Left Brachial; VENT MODE, BG nasal cannula
--- NOTE | 2020-04-12 16:29 | NUR ---
PLASTIC EYE TECHNICIAN. ABG DONE. IMPROVED. RESULT SEND MD VERNON. PLAN TRANSFER TO [facility]
[2020-04-12] MEDS ORDERED: hydrALAZINE HCL 10 MG TABLET PO PRN (16:30)
--- NOTE | 2020-04-12 19:25 | NUR ---
inhaler lase given at 1541
--- NOTE | 2020-04-12 20:00 | NUR ---
RN OPENING NOTE, PATIENT SITTING ON BED EATING AT THIS TIME, BREATHING EVEN AND UNLABORED, NO SOB/ACUTE DISTRESS NOTED AT THIS TIME, ON 1LPM VIA NC WITH O2 SAT LEVEL 89%, NSR IN TELE MONITOR WITH HR 70-80S AT THIS TIME, IV SITES PATENT AND INTACT, ALL SAFETY MEASURES OBSERVED, BED LOCKED AND IN LOW POSITION, CALL LIGHT W/I REACH , WILL CONTINUE TO MONITOR CLOSELY.
[2020-04-12] MEDS: CARVEDILOL 12.5 MG TABLET PO SCH (20:10)
--- NOTE | 2020-04-12 20:45 | NUR ---
RN NOTES, CALLED DR BEY TO REPORTED TROPONIN LEVEL 1.042, AND REPLIED WITH NO NEW ORDERED AND CONT MONITOR, ALSO CLARIFIED WITH MD DIET FOR PATIENT SINCE THERE'S 2 ORDERS, NPO AN REGULAR DIET, MD REPLIED WITH ORDER TOP CONTINUE REGULAR DIET AND DC NPO ORDER, NOTED AND CARRIED OUT.
[2020-04-12] MEDS: ATORVASTATIN 40 MG TABLET PO SCH (21:30)
[2020-04-12] MEDS ORDERED: ACETAMINOPHEN 650 MG/SUPP.RECT RC PRN (22:00)
[2020-04-12] MEDS: ACETAMINOPHEN 325 MG TABLET PO PRN (23:54)
[2020-04-13] VITALS (21 sets, daily range): BP systolic 110–163; BP diastolic 60–85
[2020-04-13] MEDS: IPRATROPIUM/ALBUTEROL INHALER IH SCH ×3 (00:12→12:24)
[2020-04-13] MEDS: ACETAMINOPHEN 325 MG TABLET PO PRN (04:01)
[2020-04-13] MEDS: methylPREDNISolone SOD SUCC 40 MG/ML VIAL IV SCH ×3 (04:01→21:14)
[2020-04-13 04:15] LABS: ABG OXYGEN SATURATION 93.5 % (92.0-98.5); ABG PCO2 68.1 mmHg (35.0-45.0); ABG PO2 68.8 mmHg (75.0-100.0); AaDO2 21.3 mmHg; COHb 1.7 % (0.5-1.5); MetHb 0.2 % (0.0-1.5); O2Hb 91.7 % (94.0-97.0); SITE, ABG Left Radial; VENT MODE, BG NASAL CANNULA
[2020-04-13 04:35] LABS: BASOPHILS % (AUTO) 0.1 % (0.0-2.0); HEMATOCRIT 48 % (39-51); HEMOGLOBIN 14.9 g/dL (13.5-17.5); LYMPHOCYTES # (AUTO) 0.5 /CMM (0.8-4.8); LYMPHOCYTES % (AUTO) 5.6 % (20.0-44.0); MEAN CORPUSCULAR HGB CONC 32 g/dl (31.0-36.0); MEAN CORPUSCULAR VOLUME 88 fL (80-96); MONOCYTES # (AUTO) 0.2 /CMM (0.1-1.30); MONOCYTES % (AUTO) 2.9 % (2.0-12.0); NEUTROPHILS # (AUTO) 7.8 /CMM (1.8-8.9); NEUTROPHILS % (AUTO) 91.4 % (43.0-81.0); PLATELET COUNT (AUTO) 234 /CMM (150-450); RED BLOOD CELL COUNT(AUTO) 5.38 MIL/uL (4.5-6.0); WHITE BLOOD COUNT (AUTO) 8.5 K/uL (4.3-11.0)
[2020-04-13 04:48] LABS: ALANINE AMINOTRANSFERASE 32 U/L (12-78); ALBUMIN 3.2 g/dL (3.4-5.0); ALKALINE PHOSPHATASE 80 U/L (46-116); ASPARTATE AMINOTRANSFERASE 18 U/L (15-37); BILIRUBIN,TOTAL 0.5 mg/dL (0.2-1.0); CALCIUM, SERUM 8.2 mg/dL (8.5-10.1); CHLORIDE 97 mmol/L (98-107); CREATININE 1.5 mg/dL (0.6-1.3); GLUCOSE 125 mg/dL (74-106); MAGNESIUM 2.4 mg/dL (1.8-2.4); PHOSPHORUS 3.4 mg/dL (2.5-4.9); POTASSIUM 4.8 mmol/L (3.5-5.1); SODIUM SERUM 139 mmol/L (136-145); TOTAL PROTEIN, SERUM 7.3 g/dL (6.4-8.2); UREA NITROGEN, BLOOD 33 mg/dL (7-18)
[2020-04-13 05:03] LABS: CARBON DIOXIDE 41 mmol/L (21-32)
--- NOTE | 2020-04-13 07:16 | NUR ---
RN NOTE, PATIENT SLEEPING THIS TIME, BREATHING EVEN AND UNLABORED, NO SOB/ACUTE DISTRESS NOTED AT THIS TIME, ON 2LPM VIA NC WITH O2 SAT LEVEL 92%, NSR IN TELE MONITOR WITH HR 70-80S AT THIS TIME, IV SITES PATENT AND INTACT, ALL SAFETY MEASURES OBSERVED, NO SIGNIFICANT CHANGE IN CONDITION DURING THE NIGHT, ON DROPLET ISOLATION PRECAUTIONS, STILL AWAITING FOR COVID RESULTS, BED LOCKED AND IN LOW POSITION, CALL LIGHT W/I REACH , ENDORSED TO JUNI STEWART FOR CONTINUITY OF CARE.
--- NOTE | 2020-04-13 07:45 | NUR ---
INDUCTION COORDINATION ENGINEER NOTES PATIENT IN BED A/OX4. HR 66 SINUS RHYTHM. NO SOB OR DISCOMFORT NOTED AT THIS TIME. WILL CONTINUE TO MONITOR THE PATIENT.
--- NOTE | 2020-04-13 08:30 | NUR ---
INTEGRATIVE MEDICINE PHYSICIAN NOTES PER DR BEY PATIENT IS OK TO BE TRANSFERRED TO [facility]. INFORM DR BEY ABOUT COVID RESULT SOON IT IS AVAILABLE.
[2020-04-13] MEDS: CLOPIDOGREL BISULFATE 75 MG TABLET PO SCH (08:49)
[2020-04-13] MEDS: TAMSULOSIN 0.4 MG CAP.SR.24H PO SCH ×2 (08:49→17:13)
[2020-04-13] MEDS: AMLODIPINE BESYLATE 10 MG TABLET PO SCH (08:51)
[2020-04-13] MEDS: CARVEDILOL 12.5 MG TABLET PO SCH ×2 (08:51→21:15)
[2020-04-13] MEDS: LEVOFLOXACIN 500 MG /D5W 100ML 500 MG in PREMIX 1 EA IV SCH (09:33)
--- NOTE | 2020-04-13 10:59 | NUR ---
CONTRACT NEGOTIATOR NOTES RECEIVED A CALL FROM MAHSA WINTERS, ABOUT THE NEGATIVE COVID-19 RESULT.
--- NOTE | 2020-04-13 11:14 | NUR ---
TIMBER HEWER NOTES INFORMED DR BEY ABOUT THE COVID NEGATIVE RESULT. ORDERED CORONARY CTA.
--- NOTE | 2020-04-13 11:54 | NUR ---
SEMICONDUCTOR TECHNICIAN NOTES PATIENT REFUSED THE CORONARY CTA AND HE IS NOT AGREE TO SIGN THE CONSENT. PATIENT BELIEVES THE PROCEDURE IS DANGEROUS FOR HIM.
--- NOTE | 2020-04-13 11:55 | NUR ---
COMPUTER SCIENCES PROFESSOR NOTES NOTIFIED DR BEY ABOUT THE CORONARY CTA REFUSAL BY PATIENT. EXPLAINED THE PATIENT THAT THE PROCEDURE IS IMPORTANT AND PATIENT REFUSED AGAIN. HE BELIEVES THE PROCEDURE IS TOO DANGEROUS FOR HIM. INFORMED DR BEY THAT PATIENT WANTS HIM TO TALK TO HIS KNIFE CUTTER DR KING. MD BEY STATED THAT THEY WERE NOT ABLE TO TALK TO DR KING. DR BEY WANTS DR SMITH TO TALK TO THE PATIENT. WILL INFORM DR SMITH ABOUT THE SITUATION.
--- NOTE | 2020-04-13 12:12 | NUR ---
AUTOMOTIVE COLLISION REPAIR INSTRUCTOR NOTES INFORMED DR SMITH THAT DR BEY WANTS HIM TO TALK TO THE PATIENT ABOUT CORONARY CTA PROCEDURE. DR SMITH INFORMED THAT HE WILL TALK TO HIM TOMORROW (04/14/2020).
--- NOTE | 2020-04-13 15:48 | NUR ---
WEB PUBLISHER NOTES PATIENT IS COMPLAINING OF DIFFICULTY BREATHING. O2 SATURATION 97% ON 2 L NASAL CANNULA. PATIENT IS ASKING FOR BREATHING TREATMENT. INFORMED DR VERNON ABOUT THE SITUATION AND MD ORDERED: ALBUTEROL 1.25 MG NEB Q4HRRT AND IPRATROPIUM NEB 0.5 MG NEB Q4HRRT.
--- NOTE | 2020-04-13 16:31 | NUR ---
SNUFF PACKING MACHINE OPERATOR NOTES INFORMED PATIENT THAT HE IS GOING TO BE TRANSFERRED TO [facility] PER CONCILIATION COURT JUDGE. PATIENT IS NOT AGREE WITH THE TRANSFER. INFORMED HIM THAT THE INSURANCE WILL NOT COVER THE EXPENSES AND HE HAS TO PAY THE HOSPITAL AND HE AGREED. CONCILIATION COURT JUDGE AWARE.
--- NOTE | 2020-04-13 17:45 | NUR ---
RETURNED ITEM CLERK NOTES PATIENT TRANSFERRED TO MED SURG UNIT (3W) TO ROOM 326. REPORT GIVEN TO DANIE. PATIENT TRANSFERRED BY WHEELCHAIR WITH THE HELP OF GROCERY STOCK CLERK AND RN. FAMILY AWARE OF TRANSFER. BELONGINGS RETURNED TO PATIENT. CHART AND MEDICATIONS IN PATIENT CASSETTE HANDED TO DANIE. PATIENT AGREED TO PAY THE EXPENSES OUT OF POCKET AND SIGNED THE AGREEMENT FORM. AGREEMENT FORM PLACED IN CHART. VITALS WNL AND NO SOB OR DISCOMFORT NOTED DURING TRANSPORTATION.
--- NOTE | 2020-04-13 17:56 | NUR ---
MS/document photographer Patient transferred from ICU, down graded to med/surg status.
--- NOTE | 2020-04-13 17:58 | NUR ---
MS/rn cvicu A/O X4, vital signs on transfer within normal limits, no fever, denies any pain or discomfort. Saturation on 1l 97%. Oriented to new surroundings, call light within reach, bed in low setting, side rails X3 in upright position, brakes locked. Discharge order noted to be entered into computer by Dr Armendariz, per ICU nurse, this order was for patient to be discharged from [facility] and transferred to [facility] for insurance purposes. Patient has refused to be transferred and has signed financial responsibility paper from this point forward.
--- NOTE | 2020-04-13 18:41 | NUR ---
MS/RN End note Patient remains in stable condition, all needs attended, will endorse to shift supervisor film processing.
--- NOTE | 2020-04-13 20:06 | NUR ---
MS/TELE/RN AT 1930, PATIENT WAS AWAKE, ALERT, ORIENTED, COMFORTABLE, NO C/O PAIN, NO DISTRESS NOTED, ENCOURAGED TO USE CALL LIGHT FOR ANY ASSISTANCE, PATIENT VERBALIZED UNDERSTANDING. WILL MONITOR.
[2020-04-13] MEDS: IPRATROPIUM NEB FS 0.5 MG/2.5 ML AMPUL.NEB NEB SCH ×2 (20:14→23:59)
[2020-04-13] MEDS: ALBUTEROL HALF STRENGTH 1.25 MG/3 ML VIAL.NEB NEB SCH ×2 (20:14→23:59)
[2020-04-13] MEDS: ATORVASTATIN 40 MG TABLET PO SCH (21:14)
[2020-04-13] MEDS: ENOXAPARIN SODIUM 40 MG/0.4 ML DISP.SYRIN SQ SCH (21:16)
[2020-04-13] MEDS: HYDROCODONE/APAP 5/325MG 1 EACH TABLET PO PRN (21:25)
[2020-04-13] MEDS ORDERED: ACETAMINOPHEN 325 MG TABLET PO PRN ×2 (23:40)
[2020-04-14] VITALS: BP 118/66
--- NOTE | 2020-04-14 00:12 | NUR ---
RT NOTE Pt rec'd on 2lnc. Pt alert and awake. Pt placed on Bipap NOC per md orders. mepilex in place, no redness and no scarring noted . Alarms are set and audible. Ambu bag bedside. Bipap plugged into red outlet. Will continue to monitor closely. Addendum: 04/14/20 at 0016 by REBEKAH SHIELDS RT Amended: Links added.
--- NOTE | 2020-04-14 01:03 | NUR ---
MS/TELE/RN PATIENT IS SLEEPING AT THIS TIME WITH CPAP/BIPAP ON, APPEAR COMFORTABLE, NO SIGNS OF DISTRESS NOTED, CALL LIGHT IN REACH. WILL CONTINUE TO MONITOR.
[2020-04-14 04:00] VITALS: BP 121/68
[2020-04-14] MEDS: IPRATROPIUM NEB FS 0.5 MG/2.5 ML AMPUL.NEB NEB SCH ×5 (04:13→20:13)
[2020-04-14] MEDS: ALBUTEROL HALF STRENGTH 1.25 MG/3 ML VIAL.NEB NEB SCH ×5 (04:13→20:13)
[2020-04-14] MEDS: methylPREDNISolone SOD SUCC 40 MG/ML VIAL IV SCH ×3 (05:06→22:03)
--- NOTE | 2020-04-14 06:35 | NUR ---
MS/TELE/RN PATIENT IS STILL SLEEPING AT THIS TIME, APPEAR COMFORTABLE, NO SIGNS OF DISTRESS NOTED, CALL LIGHT IN REACH. ALL NEEDS ATTENDED AT THIS TIME, WILL CONTINUE TO MONITOR.
[2020-04-14 07:07] LABS: BASOPHILS % (AUTO) 0.1 % (0.0-2.0); HEMATOCRIT 45 % (39-51); HEMOGLOBIN 14.3 g/dL (13.5-17.5); LYMPHOCYTES # (AUTO) 0.6 /CMM (0.8-4.8); LYMPHOCYTES % (AUTO) 6.1 % (20.0-44.0); MEAN CORPUSCULAR HGB CONC 32 g/dl (31.0-36.0); MEAN CORPUSCULAR VOLUME 86 fL (80-96); MONOCYTES # (AUTO) 0.4 /CMM (0.1-1.30); MONOCYTES % (AUTO) 3.9 % (2.0-12.0); NEUTROPHILS # (AUTO) 8.7 /CMM (1.8-8.9); NEUTROPHILS % (AUTO) 89.9 % (43.0-81.0); PLATELET COUNT (AUTO) 244 /CMM (150-450); RED BLOOD CELL COUNT(AUTO) 5.19 MIL/uL (4.5-6.0); WHITE BLOOD COUNT (AUTO) 9.7 K/uL (4.3-11.0)
[2020-04-14 07:36] LABS: CALCIUM, SERUM 7.9 mg/dL (8.5-10.1); CREATININE 1.2 mg/dL (0.6-1.3); POTASSIUM 5.3 mmol/L (3.5-5.1)
--- NOTE | 2020-04-14 07:54 | NUR ---
rn notified dr. love leach [id number]. Addendum: 04/14/20 at 1937 by DAMION BENTON RN correction rn notified dr. campoverde of co2 level.
[2020-04-14 08:00] VITALS: BP 124/69
[2020-04-14] MEDS ORDERED: SODIUM POLYSTYRENE SULFONATE 15 G/60 ML BOTTLE PO ONE (08:00)
[2020-04-14] MEDS: CARVEDILOL 12.5 MG TABLET PO SCH ×2 (08:31→22:04)
[2020-04-14] MEDS: CLOPIDOGREL BISULFATE 75 MG TABLET PO SCH (08:31)
[2020-04-14] MEDS: TAMSULOSIN 0.4 MG CAP.SR.24H PO SCH ×2 (08:31→17:51)
[2020-04-14] MEDS: LEVOFLOXACIN (500MG) 500 MG TABLET PO SCH (08:31)
[2020-04-14] MEDS: AMLODIPINE BESYLATE 10 MG TABLET PO SCH (08:31)
--- NOTE | 2020-04-14 10:00 | NUR ---
given kayexalate for high potassium.
--- NOTE | 2020-04-14 12:45 | NUR ---
p.oximetry checked at rest and 94% without 02.checked after a little exercise and 86% without o2.
[2020-04-14 16:00] VITALS: BP 134/70
--- NOTE | 2020-04-14 18:00 | NUR ---
pt. states had one watery bm.
--- NOTE | 2020-04-14 19:30 | NUR ---
MS/TELE/RN RECEIVED PATIENT ON BED TALKING ON THE PHONE, COMFORTABLE, NO DISTRESS NOTED, CALL LIGHT IN REACH. WILL MONITOR.
[2020-04-14 20:20] VITALS: BP 133/69
[2020-04-14] MEDS: ENOXAPARIN SODIUM 40 MG/0.4 ML DISP.SYRIN SQ SCH (22:04)
[2020-04-14] MEDS: ATORVASTATIN 40 MG TABLET PO SCH (22:05)
[2020-04-15] MEDS: HYDROCODONE/APAP 5/325MG 1 EACH TABLET PO PRN (00:18)
[2020-04-15] MEDS: ALBUTEROL HALF STRENGTH 1.25 MG/3 ML VIAL.NEB NEB SCH ×7 (00:31→23:26)
[2020-04-15] MEDS: IPRATROPIUM NEB FS 0.5 MG/2.5 ML AMPUL.NEB NEB SCH ×7 (00:31→23:26)
--- NOTE | 2020-04-15 00:36 | NUR ---
MS/TELE/RN BIPAP WAS PUT ON BY RT PER PATIENT'S REQUEST.
--- NOTE | 2020-04-15 03:35 | NUR ---
MS/TELE/RN PATIENT IS SLEEPING AT THIS TIME WITH BIPAP ON, APPEAR COMFORTABLE, NO DISTRESS NOTED, CALL LIGHT IN REACH. WILL CONTINUE TO MONITOR.
[2020-04-15] MEDS: methylPREDNISolone SOD SUCC 40 MG/ML VIAL IV SCH (05:39)
--- NOTE | 2020-04-15 05:50 | NUR ---
MS/TELE/RN PATIENT IS AWAKE, COMFORTABLE, NO C/O PAIN, NO DISTRESS NOTED, CALL LIGHT IN REACH, ALL NEEDS ATTENDED AT THIS TIME, WILL CONTINUE TO MONITOR.
[2020-04-15 06:43] LABS: HEMATOCRIT 47 % (39-51); HEMOGLOBIN 14.8 g/dL (13.5-17.5); LYMPHOCYTES # (AUTO) 0.6 /CMM (0.8-4.8); LYMPHOCYTES % (AUTO) 5.9 % (20.0-44.0); MEAN CORPUSCULAR HGB CONC 32 g/dl (31.0-36.0); MEAN CORPUSCULAR VOLUME 86 fL (80-96); MONOCYTES # (AUTO) 0.6 /CMM (0.1-1.30); MONOCYTES % (AUTO) 5.4 % (2.0-12.0); NEUTROPHILS # (AUTO) 9.1 /CMM (1.8-8.9); NEUTROPHILS % (AUTO) 88.7 % (43.0-81.0); PLATELET COUNT (AUTO) 265 /CMM (150-450); RED BLOOD CELL COUNT(AUTO) 5.43 MIL/uL (4.5-6.0); WHITE BLOOD COUNT (AUTO) 10.3 K/uL (4.3-11.0)
[2020-04-15 06:58] LABS: CALCIUM, SERUM 7.5 mg/dL (8.5-10.1); CREATININE 1.1 mg/dL (0.6-1.3); POTASSIUM 3.9 mmol/L (3.5-5.1)
--- NOTE | 2020-04-15 07:30 | NUR ---
RN MS NOTES PT IN BED, AWAKE, ALERT AND ORIENTED, NO COMPLAINT OF PAIN OR ANY DISCOMFORT, RESPIRATIONS NORMAL, CALL LIGHT WITHIN REACH, NEEDS ATTENDED.
[2020-04-15 08:00] VITALS: BP 147/65
[2020-04-15] MEDS: TAMSULOSIN 0.4 MG CAP.SR.24H PO SCH ×2 (08:22→16:47)
[2020-04-15] MEDS: LEVOFLOXACIN (500MG) 500 MG TABLET PO SCH (08:22)
[2020-04-15] MEDS: AMLODIPINE BESYLATE 10 MG TABLET PO SCH (08:23)
[2020-04-15] MEDS: CARVEDILOL 12.5 MG TABLET PO SCH ×2 (08:23→21:53)
[2020-04-15] MEDS: CLOPIDOGREL BISULFATE 75 MG TABLET PO SCH (08:23)
[2020-04-15 10:36] LABS: ABG BASE EXCESS 10.7 mmol/L; ABG OXYGEN SATURATION 92.7 % (92.0-98.5); ABG PH 7.407 (7.350-7.450); ABG PO2 64.8 mmHg (75.0-100.0); AaDO2 61.7 mmHg; COHb 0.7 % (0.5-1.5); MetHb 0.4 % (0.0-1.5); O2Hb 91.7 % (94.0-97.0); SITE, ABG Left Radial; VENT MODE, BG nasal cannula
[2020-04-15] MEDS: predniSONE 20 MG TABLET PO SCH (11:35)
--- NOTE | 2020-04-15 12:14 | NUR ---
RN MS NOTES PT IN BED, AWAKE, ALERT AND ORIENTED, NO COMPLAINT AT THIS TIME, SEEN BY DR. BEY AND DR. VERNON, PLAN OF CARE DISCUSSED WITH PT, VERBALIZED UNDERSTANDING.
[2020-04-15 16:00] VITALS: BP 141/71
--- NOTE | 2020-04-15 16:19 | NUR ---
RN MS NOTES PT'S O2 SAT OFF O2 IS BELOW 88%.
--- NOTE | 2020-04-15 18:28 | NUR ---
RN MS NOTES PT IN BED, AWAKE, ALERT AND ORIENTED, NO COMPLAINT OF PAIN, NO SOB, ON O2 AT 2LPM VIA N/C, PM MEDS GIVEN, WITH D/C TO HOME ORDER, CM ARRANGING HOME O2 AND BIPAP, PT AND MD AWARE, ALL NEEDS ATTENDED.
[2020-04-15 20:35] VITALS: BP 142/70
[2020-04-15] MEDS: ATORVASTATIN 40 MG TABLET PO SCH (21:52)
[2020-04-15] MEDS: ENOXAPARIN SODIUM 40 MG/0.4 ML DISP.SYRIN SQ SCH (21:53)
[2020-04-15] MEDS: ZOLPIDEM TARTRATE 10 MG TABLET PO PRN (22:43)
--- NOTE | 2020-04-15 23:26 | NUR ---
PT PLACED ON NOCTURNAL BIPAP, JUNI TAYLOR NOTIFIED. NO RESPIRATORY DISTRESS NOTED AT THIS TIME. WILL CONTINUE TO MONITOR THE PT T/O SHIFT.
[2020-04-16] MEDS: IPRATROPIUM NEB FS 0.5 MG/2.5 ML AMPUL.NEB NEB SCH ×6 (02:54→22:39)
[2020-04-16] MEDS: ALBUTEROL HALF STRENGTH 1.25 MG/3 ML VIAL.NEB NEB SCH ×6 (02:54→22:39)
--- NOTE | 2020-04-16 06:32 | NUR ---
MS RN NOTES AWAKE & RESPONSIVE. NOT IN ANY DISTRESS. NO SOB NOTED. DENIES ANY PAIN OR DISCOMFORT AT THIS TIME. WITH IV-HL PATENT & INTACT. AM CARE DONE. MONITORED ACCORDINGLY. CALL LIGHT WITHIN REACH. BED IN LOWEST POSITION. SR UP X 3 WITH BED ALARM ON FOR SAFETY. WILL ENDORSE TO NEXT SHIFT.
[2020-04-16 08:00] VITALS: BP 146/74
--- NOTE | 2020-04-16 08:00 | NUR ---
RN NOTES RECEIVED PATIENT IN THE BED A/O X4, ON 02-2L NC, NO ACUTE RESPIRATORY DISTRESS, WAS COUGHING WITH WHITE DISCHARGE. ALSO COMPLAINING OF PAIN LOWER BACK 6/10 PER PAIN SCALE. PATIENT AMBULATORY SELF CARE. SEE HOSPITALIST Dr BEY PLAN IN DISCHARGE HOME AFTER BIPAP, AND OXYGEN PLACEMENT AT HOME. CASE MANAGEMENT WORKING ON IT. CALL LIGHT WITHIN TO REACH, ADMINISTERED SCHEDULED MEDICATION. CONTINUED MONITORING.
[2020-04-16] MEDS: predniSONE 20 MG TABLET PO SCH (08:54)
[2020-04-16] MEDS: LEVOFLOXACIN (500MG) 500 MG TABLET PO SCH (08:54)
[2020-04-16] MEDS: AMLODIPINE BESYLATE 10 MG TABLET PO SCH (08:55)
[2020-04-16] MEDS: TAMSULOSIN 0.4 MG CAP.SR.24H PO SCH ×2 (08:55→17:34)
[2020-04-16] MEDS: CARVEDILOL 12.5 MG TABLET PO SCH ×2 (08:55→21:29)
[2020-04-16] MEDS: CLOPIDOGREL BISULFATE 75 MG TABLET PO SCH (08:55)
[2020-04-16] MEDS: HYDROCODONE/APAP 5/325MG 1 EACH TABLET PO PRN (08:57)
--- NOTE | 2020-04-16 08:57 | NUR ---
RN NOTES ADMINISTERED NARCO 5/325 MG PO PRN FOR LOWER BACK PAIN PER PATIENT REQUEST. V/S TAKEN BP 146/72, P-70, R-19. CONTINUED MONITORING.
[2020-04-16 16:00] VITALS: BP 150/79
--- NOTE | 2020-04-16 18:00 | NUR ---
RN NOTES PATIENT STABLE NO ACUTE RESPIRATORY DISTRESS, ON O2-2LNC, PATIENT WILL DISCHARGE HOME AFTER BIPAP, AND OXYGEN SET UP HOME. PATIENT SELF CARE. AMBULATORY, REFUSED PAIN. ENDORSED ONCOMING NURSE FOLLOW PLAN OF CARE.
--- NOTE | 2020-04-16 19:45 | NUR ---
RN NOTES RECEIVED PATIENT AWAKE, RESTING COMFORTABLY, REPOSITIONED FOR COMFORT, DENIES PAIN AT THIS TIME. SAFETY MEASURES IN PLACE ASPIRATION PRECAUTION EMPHASIZED, WILL CONTINUE TO MONITOR ACCORDINGLY.
[2020-04-16 20:36] VITALS: BP 128/64
[2020-04-16 20:48] VITALS: BP 128/64
[2020-04-16] MEDS: ENOXAPARIN SODIUM 40 MG/0.4 ML DISP.SYRIN SQ SCH (21:27)
[2020-04-16] MEDS: ATORVASTATIN 40 MG TABLET PO SCH (21:29)
[2020-04-16] MEDS: ZOLPIDEM TARTRATE 10 MG TABLET PO PRN (21:54)
--- NOTE | 2020-04-17 02:04 | NUR ---
NOTIFIED BY JUNI COLLINS THAT PT WANTS TO BE TAKEN OFF OF BIPAP. PT STATED "HE CAN'T SLEEP." PT WAS PLACED BACK ON NC AT THIS TIME. NO RESP DISTRESS NOTED. Addendum: 04/17/20 at 0206 by PREMA KUAMRI RT Amended: Links added.
[2020-04-17] MEDS: ALBUTEROL HALF STRENGTH 1.25 MG/3 ML VIAL.NEB NEB SCH ×3 (02:34→11:38)
[2020-04-17] MEDS: IPRATROPIUM NEB FS 0.5 MG/2.5 ML AMPUL.NEB NEB SCH ×3 (02:34→11:38)
[2020-04-17] MEDS: HYDROCODONE/APAP 5/325MG 1 EACH TABLET PO PRN (04:37)
--- NOTE | 2020-04-17 06:50 | NUR ---
RN NOTES ALL NEEDS ATTENDED AND MET. ABLE TO REST AND SLEPT AT INTERVALS, KEPT CLEAN WARM DRY AND COMFORTABLE, SAFETY MEASURES IN PLACE, ASPIRATION PRECAUTION EMPHASIZED, ON BIPAP FROM 2200 - 0204 PER PATIENT REQUEST TO BE OFF BIPAP. ABLE TO REST AND SLEPT ON AND OFF. WILL ENDORSE TO AM NURSE FOR CONTINUITY OF CARE.
[2020-04-17 08:00] VITALS: BP 123/68
--- NOTE | 2020-04-17 08:00 | NUR ---
tele insecticide sprayer: initial assessment received pt in bed awake, a/ox4. no c/o sob. on o2 at 2l/min via n/c. hob elevated. able to ambulate. no resp. distress noted. instructed to call for assistance. will continue to monitor.
[2020-04-17 08:44] VITALS: BP 123/68
[2020-04-17] MEDS: LEVOFLOXACIN (500MG) 500 MG TABLET PO SCH (08:44)
[2020-04-17] MEDS: predniSONE 20 MG TABLET PO SCH (08:44)
[2020-04-17] MEDS: AMLODIPINE BESYLATE 10 MG TABLET PO SCH (08:44)
[2020-04-17] MEDS: TAMSULOSIN 0.4 MG CAP.SR.24H PO SCH (08:44)
[2020-04-17] MEDS: CLOPIDOGREL BISULFATE 75 MG TABLET PO SCH (08:44)
[2020-04-17] MEDS: CARVEDILOL 12.5 MG TABLET PO SCH (08:44)
--- NOTE | 2020-04-17 10:00 | NUR ---
m/s television repairer: md visit seen by dr. campoverde. pt for d'c home vs snf. awaiting for oxygen and cpap/bipap machine.
--- NOTE | 2020-04-17 10:30 | NUR ---
tele ict account manager: notes roz called and will come here to hospital to deliver oxygen and cpap/bipap machine. pt made aware.
--- NOTE | 2020-04-17 11:00 | NUR ---
m/s legal aide: notes kia (gabriela) called and informed cn and nurse that pt is leaving at 1300 with oxygen and portable bipap. still awaiting for roz to deliver dme in the hospital. pt made aware.
--- NOTE | 2020-04-17 11:25 | NUR ---
m/s prospecting driller: notes roz at bedside with portable bipap machine and oxygen tank. roz showed how to work his bipap machine. returned demonstration done by pt. pt called his family to make sure that they are home around 1 pm.
--- NOTE | 2020-04-17 12:00 | NUR ---
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 pt refused help getting dress when staff offered. eta at 1300. pt aware. lunch served. all dme at bedside.
--- NOTE | 2020-04-17 13:15 | NUR ---
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 report given to one of the crew.
--- NOTE | 2020-04-17 13:20 | NUR ---
m/s cold strip roller: notes h/l removed with tip intact.
--- NOTE | 2020-04-17 13:25 | NUR ---
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
== END 2020-04-17 13:30 | disposition home health service (06) | DRG 194 ==
LOC: ER 21:19 → ICU 23:58 → TELE 04-13 17:43 → MED 04-14 08:54
PROVIDERS: ADMIT Internal Medicine; ATTEND Internal Medicine
DX: I13.0 Hypertensive heart and chronic kidney disease with heart failure and stage 1 through stage 4 chronic kidney disease, or unspecified chronic kidney disease (principal); I21.A1 Myocardial infarction type 2; J96.02 Acute respiratory failure with hypercapnia; J96.01 Acute respiratory failure with hypoxia; N17.0 Acute kidney failure with tubular necrosis; J18.9 Pneumonia, unspecified organism; E87.2 Acidosis; I50.20 Unspecified systolic (congestive) heart failure; E87.5 Hyperkalemia; J44.0 Chronic obstructive pulmonary disease with (acute) lower respiratory infection; J44.1 Chronic obstructive pulmonary disease with (acute) exacerbation; I25.10 Atherosclerotic heart disease of native coronary artery without angina pectoris; K21.9 Gastro-esophageal reflux disease without esophagitis; Z98.890 Other specified postprocedural states; N40.0 Benign prostatic hyperplasia without lower urinary tract symptoms; Z95.5 Presence of coronary angioplasty implant and graft; Z95.1 Presence of aortocoronary bypass graft; Z87.891 Personal history of nicotine dependence; Z88.5 Allergy status to narcotic agent; Z88.0 Allergy status to penicillin; Z88.8 Allergy status to other drugs, medicaments and biological substances; Z79.02 Long term (current) use of antithrombotics/antiplatelets; Z79.82 Long term (current) use of aspirin; Z87.19 Personal history of other diseases of the digestive system; N18.9 Chronic kidney disease, unspecified; E66.2 Morbid (severe) obesity with alveolar hypoventilation; E78.5 Hyperlipidemia, unspecified; Z85.118 Personal history of other malignant neoplasm of bronchus and lung; J98.11 Atelectasis
CPT/HCPCS: 36415; 36600; 71045-TC; 80048-TC; 80053-TC; 80061-TC; 81000-TC; 82248-TC; 82550-TC; 82728-TC; 82803-TC; 83605-TC; 83615-TC; 83735-TC; 83880; 84100-TC; 84484-TC; 85025-TC; 85378-TC; 85730-TC; 86140-TC; 87040-TC; 87081-TC; 93307-TC; 94799-TC; A4216; G0378; J0692; J1650; J1940; J1956; J2920; J2930; J3370; J3475; J7050; J7060; U0003-CS

== ENCOUNTER 2022-03-12 22:23 | Inpatient (IN) | payer MEDICARE, OTHER ==
[~2022-03-12] VITALS: Ht 172.7 cm; Wt 73.5 kg
[~2022-03-12 22:23] MED LIST changes: +ALPR2TAB2 PO; +AMLO-213 PO; -AMLO10TA7 PO; +FURO-144 PO; +HYDR-4384 PO; -LOSA100T31 PO
[2022-03-12 22:49] LABS: BASOPHILS # (AUTO) 0.1 K/uL (0.0-0.2); BASOPHILS % (AUTO) 0.7 % (0.0-2.0); EOSINOPHILS % (AUTO) 3.6 % (0.0-6.0); HEMATOCRIT 42 % (39-51); HEMOGLOBIN 13.5 g/dL (13.5-17.5); LYMPHOCYTES # (AUTO) 0.9 K/uL (0.8-4.8); LYMPHOCYTES % (AUTO) 9.4 % (20.0-44.0); MEAN CORPUSCULAR HGB CONC 32 g/dl (31.0-36.0); MEAN CORPUSCULAR VOLUME 88 fL (80-96); MONOCYTES # (AUTO) 0.7 K/uL (0.1-1.30); MONOCYTES % (AUTO) 7.5 % (2.0-12.0); NEUTROPHILS # (AUTO) 7.8 K/uL (1.8-8.9); NEUTROPHILS % (AUTO) 78.8 % (43.0-81.0); PLATELET COUNT (AUTO) 236 K/uL (150-450); RED BLOOD CELL COUNT(AUTO) 4.77 MIL/uL (4.5-6.0); WHITE BLOOD COUNT (AUTO) 9.9 K/uL (4.3-11.0)
[2022-03-12 23:01] LABS: CALCIUM, SERUM 8.5 mg/dL (8.5-10.1); CARBON DIOXIDE 37 mmol/L (21-32); CHLORIDE 103 mmol/L (98-107); CREATININE 1.3 mg/dL (0.6-1.3); GLUCOSE 126 mg/dL (74-106); SODIUM SERUM 142 mmol/L (136-145); UREA NITROGEN, BLOOD 20 mg/dL (7-18)
[2022-03-12 23:15] LABS: ALANINE AMINOTRANSFERASE 10 U/L (12-78); ALKALINE PHOSPHATASE 82 U/L (46-116); ASPARTATE AMINOTRANSFERASE 7 U/L (15-37); BILIRUBIN,DIRECT 0.1 mg/dL (0.0-0.2); BILIRUBIN,TOTAL 0.7 mg/dL (0.2-1.0); TOTAL PROTEIN, SERUM 6.9 g/dL (6.4-8.2)
[2022-03-12] MEDS ORDERED: LEVOFLOXACIN 750 MG /D5W 150ML PIGGYBACK IV ONE (23:30)
[2022-03-13] MEDS ORDERED: FUROSEMIDE 40 MG/4 ML VIAL IV ONE
[2022-03-13] MEDS ORDERED: MAG HYDROX/AL HYDROX/SIMETH 30 ML UDC PO PRN
[2022-03-13] MEDS ORDERED: MAGNESIUM HYDROXIDE 30 ML UDC PO PRN
[2022-03-13] MEDS ORDERED: HYDROCODONE/APAP 5/325MG TABLET PO PRN
[2022-03-13] MEDS ORDERED: Z GUARD REMEDY 4 OZ OINT TP PRN
[2022-03-13] MEDS ORDERED: LEVOFLOXACIN 500 MG /D5W 100ML 500 MG in PREMIX 1 EA IV SCH ×2
[2022-03-13] MEDS ORDERED: LEVOFLOXACIN 750 MG /D5W 150ML 150 ML IV ONE (00:01)
[2022-03-13] MEDS ORDERED: FUROSEMIDE 40 MG/4 ML VIAL ONE (01:28)
[2022-03-13] MEDS ORDERED: ACETAMINOPHEN 325 MG TABLET ONE (01:35)
[2022-03-13] MEDS: ACETAMINOPHEN 325 MG TABLET PO PRN ×2 (01:38→16:48)
[2022-03-13] MEDS ORDERED: HYDROCODONE/APAP 10/325MG TABLET ONE ×2 (03:40→07:30)
[2022-03-13] MEDS: HYDROCODONE/APAP 10/325MG TABLET PO PRN ×3 (03:47→13:27)
[2022-03-13 06:08] LABS: BASOPHILS # (AUTO) 0.1 K/uL (0.0-0.2); BASOPHILS % (AUTO) 0.8 % (0.0-2.0); HEMATOCRIT 41 % (39-51); HEMOGLOBIN 13.3 g/dL (13.5-17.5); LYMPHOCYTES # (AUTO) 1.1 K/uL (0.8-4.8); LYMPHOCYTES % (AUTO) 13.1 % (20.0-44.0); MEAN CORPUSCULAR HGB CONC 33 g/dl (31.0-36.0); MEAN CORPUSCULAR VOLUME 87 fL (80-96); MONOCYTES # (AUTO) 0.8 K/uL (0.1-1.30); MONOCYTES % (AUTO) 9.7 % (2.0-12.0); NEUTROPHILS # (AUTO) 6.3 K/uL (1.8-8.9); NEUTROPHILS % (AUTO) 72.4 % (43.0-81.0); PLATELET COUNT (AUTO) 231 K/uL (150-450); RED BLOOD CELL COUNT(AUTO) 4.67 MIL/uL (4.5-6.0); WHITE BLOOD COUNT (AUTO) 8.8 K/uL (4.3-11.0)
[2022-03-13 06:33] LABS: CALCIUM, SERUM 8.3 mg/dL (8.5-10.1); CREATININE 1.3 mg/dL (0.6-1.3); MAGNESIUM 1.9 mg/dL (1.8-2.4); PHOSPHORUS 3.7 mg/dL (2.5-4.9); POTASSIUM 3.8 mmol/L (3.5-5.1)
[2022-03-13] MEDS ORDERED: ASPI-1420 PO (08:06)
[2022-03-13] MEDS ORDERED: POTA10CA43 PO (08:06)
[2022-03-13] MEDS ORDERED: ALBU8.5H8 IH (08:06)
[2022-03-13] MEDS ORDERED: ALBU2.5V38 IH (08:06)
[2022-03-13] MEDS ORDERED: FINA5TAB11 PO (08:06)
[2022-03-13] MEDS ORDERED: SACU1TAB PO (08:06)
[2022-03-13 09:00] VITALS: BP 147/77
[2022-03-13] MEDS: AMLODIPINE BESYLATE 10 MG TABLET PO SCH (09:00)
[2022-03-13] MEDS: METOPROLOL TARTRATE 50 MG TABLET PO SCH (09:00)
[2022-03-13] MEDS: TAMSULOSIN 0.4 MG CAP.SR.24H PO SCH ×2 (11:34→16:54)
[2022-03-13] MEDS: ATORVASTATIN 10 MG TABLET PO SCH (11:34)
[2022-03-13] MEDS: CLOPIDOGREL BISULFATE 75 MG TABLET PO SCH (11:34)
[2022-03-13] MEDS: ALBUTEROL FS 2.5 MG/3 ML VIAL.NEB NEB PRN ×2 (14:23→17:34)
[2022-03-13 16:00] VITALS: BP 141/68
[2022-03-13 17:16] LABS: ABG BASE EXCESS 0.1 mmol/L; ABG OXYGEN SATURATION 89.9 % (92.0-98.5); ABG PCO2 46.2 mmHg (35.0-45.0); ABG PH 7.366 (7.350-7.450); ABG PO2 58.5 mmHg (75.0-100.0); AaDO2 86.6 mmHg; COHb 1.5 % (0.5-1.5); MetHb 0.4 % (0.0-1.5); O2Hb 88.2 % (94.0-97.0); SITE, ABG Right Radial; VENT MODE, BG NASAL CANNULA
[2022-03-13] MEDS: ALPRAZOLAM 0.5 MG TABLET PO PRN (20:45)
[2022-03-13] MEDS: LEVOFLOXACIN 750 MG /D5W 150ML 750 MG in PREMIX 1 EA IV SCH (22:04)
[2022-03-14] VITALS: BP 131/74
[2022-03-14] MEDS: ACETAMINOPHEN 325 MG TABLET PO PRN ×2 (00:09→21:18)
[2022-03-14 08:00] VITALS: BP_SYST 140; BP_DIAS 56; BP_DIAS 80
[2022-03-14 08:04] LABS: BASOPHILS % (AUTO) 0.3 % (0.0-2.0); EOSINOPHILS % (AUTO) 0.6 % (0.0-6.0); HEMATOCRIT 40 % (39-51); HEMOGLOBIN 12.9 g/dL (13.5-17.5); LYMPHOCYTES # (AUTO) 0.7 K/uL (0.8-4.8); LYMPHOCYTES % (AUTO) 7.5 % (20.0-44.0); MEAN CORPUSCULAR HGB CONC 33 g/dl (31.0-36.0); MEAN CORPUSCULAR VOLUME 88 fL (80-96); MONOCYTES # (AUTO) 1.1 K/uL (0.1-1.30); NEUTROPHILS # (AUTO) 7.8 K/uL (1.8-8.9); NEUTROPHILS % (AUTO) 80.6 % (43.0-81.0); PLATELET COUNT (AUTO) 211 K/uL (150-450); RED BLOOD CELL COUNT(AUTO) 4.48 MIL/uL (4.5-6.0); WHITE BLOOD COUNT (AUTO) 9.7 K/uL (4.3-11.0)
[2022-03-14] MEDS: ATORVASTATIN 10 MG TABLET PO SCH (08:10)
[2022-03-14] MEDS: TAMSULOSIN 0.4 MG CAP.SR.24H PO SCH ×2 (08:10→16:58)
[2022-03-14] MEDS: CLOPIDOGREL BISULFATE 75 MG TABLET PO SCH (08:10)
[2022-03-14] MEDS: FUROSEMIDE 40 MG/4 ML VIAL IV SCH (08:28)
[2022-03-14] MEDS: METOPROLOL TARTRATE 50 MG TABLET PO SCH ×3 (08:29→09:00)
[2022-03-14] MEDS: AMLODIPINE BESYLATE 10 MG TABLET PO SCH ×3 (08:29→09:00)
[2022-03-14] MEDS: HYDROCODONE/APAP 10/325MG TABLET PO PRN (08:36)
[2022-03-14 08:43] LABS: CREATININE 1.3 mg/dL (0.6-1.3); PHOSPHORUS 3.4 mg/dL (2.5-4.9); POTASSIUM 3.9 mmol/L (3.5-5.1)
[2022-03-14 16:00] VITALS: BP 117/50
[2022-03-14] MEDS: ONDANSETRON HCL/PF 4 MG/2 ML VIAL IVP PRN (20:06)
[2022-03-14] MEDS: LEVOFLOXACIN 750 MG /D5W 150ML 750 MG in PREMIX 1 EA IV SCH (21:20)
[2022-03-14] MEDS: ZOLPIDEM TARTRATE 5 MG TABLET PO PRN (23:44)
[2022-03-15] VITALS: BP 105/73
[2022-03-15] MEDS: ACETAMINOPHEN 325 MG TABLET PO PRN ×2 (06:39→21:07)
[2022-03-15 07:42] LABS: BASOPHILS % (AUTO) 0.2 % (0.0-2.0); EOSINOPHILS % (AUTO) 2.2 % (0.0-6.0); HEMATOCRIT 39 % (39-51); HEMOGLOBIN 12.5 g/dL (13.5-17.5); LYMPHOCYTES # (AUTO) 0.9 K/uL (0.8-4.8); LYMPHOCYTES % (AUTO) 9.9 % (20.0-44.0); MEAN CORPUSCULAR HGB CONC 32 g/dl (31.0-36.0); MEAN CORPUSCULAR VOLUME 88 fL (80-96); MONOCYTES % (AUTO) 10.8 % (2.0-12.0); NEUTROPHILS # (AUTO) 6.9 K/uL (1.8-8.9); NEUTROPHILS % (AUTO) 76.9 % (43.0-81.0); PLATELET COUNT (AUTO) 233 K/uL (150-450); RED BLOOD CELL COUNT(AUTO) 4.39 MIL/uL (4.5-6.0)
[2022-03-15 07:52] LABS: CARBON DIOXIDE 34 mmol/L (21-32); CHLORIDE 101 mmol/L (98-107); CREATININE 1.3 mg/dL (0.6-1.3); GLUCOSE 102 mg/dL (74-106); MAGNESIUM 2.1 mg/dL (1.8-2.4); PHOSPHORUS 3.6 mg/dL (2.5-4.9); POTASSIUM 4.4 mmol/L (3.5-5.1); SODIUM SERUM 139 mmol/L (136-145); UREA NITROGEN, BLOOD 28 mg/dL (7-18)
[2022-03-15 08:00] VITALS: BP 92/44
[2022-03-15] MEDS: ATORVASTATIN 10 MG TABLET PO SCH (08:55)
[2022-03-15] MEDS: CLOPIDOGREL BISULFATE 75 MG TABLET PO SCH (08:55)
[2022-03-15] MEDS: TAMSULOSIN 0.4 MG CAP.SR.24H PO SCH ×2 (08:55→16:36)
[2022-03-15] MEDS: AMLODIPINE BESYLATE 10 MG TABLET PO SCH (08:55)
[2022-03-15] MEDS: METOPROLOL TARTRATE 50 MG TABLET PO SCH (08:55)
[2022-03-15 16:00] VITALS: BP 116/61
[2022-03-15] MEDS: FUROSEMIDE 40 MG/4 ML VIAL IV SCH (16:36)
[2022-03-15 20:00] VITALS: BP 145/66
[2022-03-15] MEDS: LEVOFLOXACIN 750 MG /D5W 150ML 750 MG in PREMIX 1 EA IV SCH (21:08)
[2022-03-15] MEDS: ZOLPIDEM TARTRATE 5 MG TABLET PO PRN (22:33)
[2022-03-16 04:00] VITALS: BP 128/52
[2022-03-16] MEDS: ACETAMINOPHEN 325 MG TABLET PO PRN ×3 (04:11→20:57)
[2022-03-16 07:09] LABS: BASOPHILS % (AUTO) 0.4 % (0.0-2.0); EOSINOPHILS % (AUTO) 2.8 % (0.0-6.0); HEMATOCRIT 37 % (39-51); HEMOGLOBIN 11.8 g/dL (13.5-17.5); LYMPHOCYTES # (AUTO) 0.8 K/uL (0.8-4.8); LYMPHOCYTES % (AUTO) 10.2 % (20.0-44.0); MEAN CORPUSCULAR HGB CONC 32 g/dl (31.0-36.0); MEAN CORPUSCULAR VOLUME 88 fL (80-96); MONOCYTES # (AUTO) 0.8 K/uL (0.1-1.30); MONOCYTES % (AUTO) 10.5 % (2.0-12.0); NEUTROPHILS # (AUTO) 5.9 K/uL (1.8-8.9); NEUTROPHILS % (AUTO) 76.1 % (43.0-81.0); PLATELET COUNT (AUTO) 253 K/uL (150-450); RED BLOOD CELL COUNT(AUTO) 4.19 MIL/uL (4.5-6.0); WHITE BLOOD COUNT (AUTO) 7.7 K/uL (4.3-11.0)
[2022-03-16 07:33] LABS: ALANINE AMINOTRANSFERASE 32 U/L (12-78); ALBUMIN 2.2 g/dL (3.4-5.0); ALKALINE PHOSPHATASE 105 U/L (46-116); ASPARTATE AMINOTRANSFERASE 26 U/L (15-37); BILIRUBIN,TOTAL 0.4 mg/dL (0.2-1.0); CALCIUM, SERUM 8.6 mg/dL (8.5-10.1); CARBON DIOXIDE 37 mmol/L (21-32); CHLORIDE 100 mmol/L (98-107); CREATININE 1.2 mg/dL (0.6-1.3); GLUCOSE 116 mg/dL (74-106); MAGNESIUM 2.3 mg/dL (1.8-2.4); PHOSPHORUS 3.1 mg/dL (2.5-4.9); POTASSIUM 4.2 mmol/L (3.5-5.1); SODIUM SERUM 138 mmol/L (136-145); TOTAL PROTEIN, SERUM 6.3 g/dL (6.4-8.2); UREA NITROGEN, BLOOD 31 mg/dL (7-18)
[2022-03-16 08:00] VITALS: BP 117/52
[2022-03-16] MEDS: FUROSEMIDE 40 MG/4 ML VIAL IV SCH (08:32)
[2022-03-16] MEDS: METOPROLOL TARTRATE 50 MG TABLET PO SCH ×2 (08:33→08:56)
[2022-03-16] MEDS: ATORVASTATIN 10 MG TABLET PO SCH (08:33)
[2022-03-16] MEDS: AMLODIPINE BESYLATE 10 MG TABLET PO SCH ×2 (08:33→08:57)
[2022-03-16] MEDS: CLOPIDOGREL BISULFATE 75 MG TABLET PO SCH (08:34)
[2022-03-16] MEDS: TAMSULOSIN 0.4 MG CAP.SR.24H PO SCH ×2 (08:34→17:11)
[2022-03-16 16:10] VITALS: BP 128/61
[2022-03-16] MEDS ORDERED: LEVOFLOXACIN (250MG) 250 MG TABLET PO SCH (22:00)
[2022-03-16] MEDS: ALPRAZOLAM 0.5 MG TABLET PO PRN (23:02)
[2022-03-17] VITALS: BP 159/94
[2022-03-17 06:46] LABS: BASOPHILS % (AUTO) 0.6 % (0.0-2.0); EOSINOPHILS % (AUTO) 4.7 % (0.0-6.0); HEMATOCRIT 37 % (39-51); HEMOGLOBIN 11.9 g/dL (13.5-17.5); LYMPHOCYTES # (AUTO) 0.8 K/uL (0.8-4.8); MEAN CORPUSCULAR HGB CONC 33 g/dl (31.0-36.0); MEAN CORPUSCULAR VOLUME 88 fL (80-96); MONOCYTES # (AUTO) 0.9 K/uL (0.1-1.30); MONOCYTES % (AUTO) 11.3 % (2.0-12.0); NEUTROPHILS # (AUTO) 5.5 K/uL (1.8-8.9); NEUTROPHILS % (AUTO) 72.4 % (43.0-81.0); PLATELET COUNT (AUTO) 266 K/uL (150-450); RED BLOOD CELL COUNT(AUTO) 4.18 MIL/uL (4.5-6.0); WHITE BLOOD COUNT (AUTO) 7.6 K/uL (4.3-11.0)
[2022-03-17 07:17] LABS: ALBUMIN 2.2 g/dL (3.4-5.0); BILIRUBIN,TOTAL 0.4 mg/dL (0.2-1.0); CALCIUM, SERUM 8.3 mg/dL (8.5-10.1); CREATININE 1.1 mg/dL (0.6-1.3); MAGNESIUM 2.2 mg/dL (1.8-2.4); PHOSPHORUS 3.1 mg/dL (2.5-4.9); POTASSIUM 4.1 mmol/L (3.5-5.1); TOTAL PROTEIN, SERUM 6.3 g/dL (6.4-8.2)
[2022-03-17 08:00] VITALS: BP 133/56
[2022-03-17] MEDS: AMLODIPINE BESYLATE 10 MG TABLET PO SCH (08:24)
[2022-03-17] MEDS: TAMSULOSIN 0.4 MG CAP.SR.24H PO SCH (08:24)
[2022-03-17] MEDS: ATORVASTATIN 10 MG TABLET PO SCH (08:24)
[2022-03-17 08:25] VITALS: BP 133/56
[2022-03-17] MEDS: METOPROLOL TARTRATE 50 MG TABLET PO SCH (08:25)
[2022-03-17] MEDS: CLOPIDOGREL BISULFATE 75 MG TABLET PO SCH (09:00)
[2022-03-17] MEDS: ONDANSETRON HCL/PF 4 MG/2 ML VIAL IVP PRN (09:59)
[2022-03-17] MEDS: ACETAMINOPHEN 325 MG TABLET PO PRN (10:56)
== END 2022-03-17 13:20 | disposition home health service (06) | DRG 291 ==
LOC: ER 22:39 → TRANSITION 03-13 00:37 → MEDSG1 03-13 08:19
PROVIDERS: ADMIT Nurse Practitioner Acute Care
DX: I11.0 Hypertensive heart disease with heart failure (principal); J96.21 Acute and chronic respiratory failure with hypoxia; I50.33 Acute on chronic diastolic (congestive) heart failure; J96.22 Acute and chronic respiratory failure with hypercapnia; J90 Pleural effusion, not elsewhere classified; E66.2 Morbid (severe) obesity with alveolar hypoventilation; J98.11 Atelectasis; J70.0 Acute pulmonary manifestations due to radiation; C34.90 Malignant neoplasm of unspecified part of unspecified bronchus or lung; J98.19 Other pulmonary collapse; Z20.822 Contact with and (suspected) exposure to COVID-19; Z85.118 Personal history of other malignant neoplasm of bronchus and lung; I25.10 Atherosclerotic heart disease of native coronary artery without angina pectoris; Z92.21 Personal history of antineoplastic chemotherapy; Z92.3 Personal history of irradiation; Z87.19 Personal history of other diseases of the digestive system; N40.0 Benign prostatic hyperplasia without lower urinary tract symptoms; Z87.891 Personal history of nicotine dependence; Z88.5 Allergy status to narcotic agent; Z88.0 Allergy status to penicillin; Z88.8 Allergy status to other drugs, medicaments and biological substances; Z79.02 Long term (current) use of antithrombotics/antiplatelets; J44.9 Chronic obstructive pulmonary disease, unspecified; Z79.899 Other long term (current) drug therapy; I25.2 Old myocardial infarction; E78.5 Hyperlipidemia, unspecified; E04.1 Nontoxic single thyroid nodule; N28.1 Cyst of kidney, acquired; J98.09 Other diseases of bronchus, not elsewhere classified; J84.10 Pulmonary fibrosis, unspecified; Z98.61 Coronary angioplasty status
CPT/HCPCS: 36415; 36600; 71045-TC; 71250-TC; 76770-TC; 80048-TC; 80053-TC; 80076-TC; 82803-TC; 83735-TC; 83880; 84100-TC; 84484-TC; 85025-TC; 85730-TC; 87081-TC; 93307-TC; 94799-TC; A4216; C9803; G0378; J1940; J1956; J2405; J7050; U0003